=== PATIENT | female | born 1955 | race Caucasian/White ===

== ENCOUNTER → 2016-05-10 | Outpatient (CLI) | payer MEDICARE, BC ==
[2016-05-10 13:50] LABS: ALT 44 U/L (9-52); AST 38 U/L (14-36); Alkaline Phosphatase 55 U/L (38-126); Anion Gap 15 mmol/L; Blood Urea Nitrogen 17 mg/dL (7-17); Calcium 9.6 mg/dL (8.4-10.2); Carbon Dioxide 22 mmol/L (22-30); Chloride 109 mmol/L (98-107); Cholesterol 176 mg/dL (<200); Glucose 108 mg/dL (74-99); HDL Cholesterol 49 mg/dL (40-60); Non-African American GFR(MDRD) >60 (>60 ml/min/1.73 sqM); Potassium 4.2 mmol/L (3.5-5.1); Sodium 146 mmol/L (137-145); Total Bilirubin 0.4 mg/dL (0.2-1.3); Total Protein 7.3 g/dL (6.3-8.2); Triglycerides 151 mg/dL (<150)
[2016-05-10 14:36] LABS: Vitamin B12 422 pg/mL (239-931)
== END | disposition home or self-care (01) ==
LOC: LABMAIN 12:56
PROVIDERS: ATTEND Internal Medicine Endocrinology, Diabetes & Metabolism
DX: E11.65 Type 2 diabetes mellitus with hyperglycemia (principal)
CPT/HCPCS: 36415; 80053; 80061; 82043; 82607

== ENCOUNTER → 2016-05-17 | Outpatient (CLI) | payer MEDICARE, BC ==
--- NOTE | 2016-05-18 09:58 | BD ---
EXAMINATION TYPE: MG DEXA axial skeleton. DATE OF EXAM: 05/17/2016 4:20 PM COMPARISON: NONE CLINICAL HISTORY: Postmenopausal female with disorder of the bone per order. Height: 5 ft 10 in Weight: 263 FRAX RISK QUESTIONS: Alcohol (3 or more units per day): YES Family History (Parent hip fracture): NO Glucocorticoids (More than 3mos): NO (Ex: prednisone, prednisolone, methylprednisolone, dexamethasone, and hydrocortisone). History of Fracture in Adulthood: YES Secondary Osteoporosis: 1. Type 1 Diabetes: NO 2. Hyperthyroidism: NO 3. Menopause before 45: NO 4. Malnutrition: NO 5. Chronic liver disease: NO Rheumatoid Arthritis: NO Current Tobacco Use: NO RISK FACTORS HISTORY OF: Family History of Osteoporosis: YES Drink Alcohol: YES Active: NO Postmenopausal woman: AGE 54 Lost more than 2 inches in height since high school: YES MEDICATIONS: .Additional Medications: SIMVASTATIN, NORVASC, ASPIRIN, CALCIUM, VIT D 3 , DULOXETINE,TRICOR, MELATON IN, MELOXICAM, MIRTAZAPINE, MONTELUKAST TABS, OMEPRAZOLE, TERAZOSIN, TOPIRAMATE, DIABETIC MEDS Additional History: EXAM MEASUREMENTS: Bone mineral densitometry was performed using the [employer] System. Bone mineral density as measured about the Lumbar spine is: ----- L1-L4(G/cm2): 1.401 T Score Values are as follows: ----- L2: 1.6 ----- L3: 1.2 ----- L4: 2.7 ----- L1-L4: 1.8 Bone mineral density about the R hip (g/cm2): 1.141 Bone mineral density about the L hip (g/cm2): 1.104 T Score values are as follows: -----R Neck: 0.7 -----L Neck: 0.5 -----R Intertrochanter: 0.4 -----L Intertrochanter: 0.5 BASELINE IMPRESSION: Normal (Values between +1 and -1 indicate normal bone mass) [facility] HIPS AND SPINE NOTE: T-SCORE=SD OF THE YOUNG ADULT MEAN.
== END | disposition home or self-care (01) ==
LOC: RADBDWWP 15:47
PROVIDERS: ATTEND Physical Medicine & Rehabilitation
DX: M85.9 Disorder of bone density and structure, unspecified (principal); E11.65 Type 2 diabetes mellitus with hyperglycemia
CPT/HCPCS: 77080; 84443

== ENCOUNTER 2016-12-26 20:03 | Inpatient (IN) | payer MEDICARE, BC ==
[2016-12-26] MEDS ORDERED: RX INFO: IV CONTRAST WAS GIVEN 1 EACH MISC MISCELLANE PRN (20:48)
[2016-12-26] MEDS ORDERED: FAMOTIDINE 20 MG/2 ML VIAL IV STA (20:48)
[2016-12-26] MEDS ORDERED: SODIUM CHLORIDE 0.9% 1,000 ML IV STA (20:48)
[2016-12-26] MEDS ORDERED: ONDANSETRON 4 MG/2 ML VIAL IVP STA (20:48)
[2016-12-26] MEDS ORDERED: HYDROmorphone 1 MG/ML 1 ML SYRINGE IVP STA (20:48)
[2016-12-26 21:20] LABS: Basophils # (A) 0.1 k/uL (0-0.2); Basophils % (A) 1 %; CH 28.3; CHCM 32.1; Eosinophils # (A) 0.1 k/uL (0-0.7); Eosinophils % (A) 1 %; HCT 41.3 % (34.0-46.0); HGB 13.1 gm/dL (11.4-16.0); Luc # (Auto) 0.16; Luc % (Auto) 1; Lymphocytes # (A) 2.3 k/uL (1.0-4.8); Lymphocytes % (A) 17 %; MCH 28.1 pg (25.0-35.0); MCHC 31.8 g/dL (31.0-37.0); MCV 88.4 fL (80.0-100.0); Mean Platelet Volume 8.8; Monocytes # (A) 0.5 k/uL (0-1.0); Monocytes % (A) 4 %; Neutrophils # (A) 10.3 k/uL (1.3-7.7); Neutrophils % (A) 77 %; RBC 4.67 m/uL (3.80-5.40); RDW 14.5 % (11.5-15.5); WBC 13.5 k/uL (3.8-10.6); WBC (Perox) 13.57
[2016-12-26] MEDS ORDERED: methylPREDNISolone SOD SUCCI 125 MG/2 ML VIAL IV STA (21:23)
[2016-12-26] MEDS ORDERED: diphenhydrAMINE 50 MG/ML 1 ML VIAL IVP STA (21:23)
[2016-12-26 21:30] LABS: ALT 58 U/L (9-52); AST 46 U/L (14-36); Alkaline Phosphatase 64 U/L (38-126); Anion Gap 17 mmol/L; Blood Urea Nitrogen 19 mg/dL (7-17); Calcium 10.2 mg/dL (8.4-10.2); Carbon Dioxide 22 mmol/L (22-30); Chloride 105 mmol/L (98-107); Glucose 160 mg/dL (74-99); Non-African American GFR(MDRD) >60 (>60 ml/min/1.73 sqM); Sodium 144 mmol/L (137-145); Total Bilirubin 0.5 mg/dL (0.2-1.3); Total Protein 7.7 g/dL (6.3-8.2)
[2016-12-26 21:55] LABS: Potassium 4.2 mmol/L (3.5-5.1)
[2016-12-26 21:57] LABS: Amylase 1373 U/L (30-110)
--- NOTE | 2016-12-26 22:11 | ED ---
General Adult HPI - General Chief complaint: Abdominal Pain Stated complaint: stomach and back pain Time Seen by Provider: 12/26/16 20:41 Source: patient, RN notes reviewed Mode of arrival: ambulatory Limitations: no limitations - History of Present Illness Initial comments: 61-year-old female presents to the emergency department with a chief complaint of abdominal pain that started all of a sudden today that radiates to the back. Patient states in the center of her abdomen. Patient states that she's never had a feeling this before. Patient denies any abdominal surgeries in the past. Patient states she was concerned due to her pain and she states that it is very moderate. So she thought that she should be evaluated.Patient denies any recent fever, chills, shortness of breath, chest pain, numbness or tingling, dysuria or hematuria, constipation or diarrhea, headaches or visual changes, or any other current symptoms. - Related Data Home Medications Medication Instructions Recorded Confirmed ALPRAZolam [Xanax] 0.25 mg PO DAILY 12/26/16 12/26/16 Aspirin 81 mg PO DAILY 12/26/16 12/26/16 Calcium Carbonate/Vitamin D3 2 cap PO DAILY 12/26/16 12/26/16 [Calcium 600-Vit D3 500 Softgel] Cyclobenzaprine [Flexeril] 10 mg PO DAILY 12/26/16 12/26/16 DULoxetine HCL [Cymbalta] 60 mg PO HS 12/26/16 12/26/16 Fenofibrate Nanocrystallized 145 mg PO DAILY 12/26/16 12/26/16 [Tricor] Meloxicam 15 mg PO DAILY 12/26/16 12/26/16 Montelukast [Singulair] 10 mg PO DAILY 12/26/16 12/26/16 Omeprazole 20 mg PO BID 12/26/16 12/26/16 Simvastatin [Zocor] 40 mg PO DAILY 12/26/16 12/26/16 Terazosin HCl 10 mg PO DAILY 12/26/16 12/26/16 Topiramate [Topamax] 25 mg PO DAILY 12/26/16 12/26/16 Zolpidem [Ambien] 10 mg PO HS 12/26/16 12/26/16 amLODIPine [Norvasc] 2.5 mg PO DAILY 12/26/16 12/26/16 metFORMIN HCL 1,000 mg PO BID 12/26/16 12/26/16 tiZANidine [Zanaflex] 4 mg PO HS 12/26/16 12/26/16 Allergies Allergy/AdvReac Type Severity Reaction Status Date / Time iothalamate meglumine Allergy Rash/Hives Verified 12/26/16 20:47 [From David] Review of Systems ROS Statement: Those systems with pertinent positive or pertinent negative responses have been documented in the HPI. ROS Other: All systems not noted in ROS Statement are negative. Past Medical History Past Medical History: Diabetes Mellitus, GERD/Reflux, Hyperlipidemia, Hypertension, Seizure Disorder, Sleep Apnea/CPAP/BIPAP Additional Past Medical History / Comment(s): depression, migraines History of Any Multi-Drug Resistant Organisms: None Reported Past Surgical History: Bariatric Surgery, Breast Surgery, Orthopedic Surgery, Tonsillectomy Past Psychological History: Depression Smoking Status: Never smoker Past Alcohol Use History: None Reported Past Drug Use History: None Reported General Exam - General Exam Comments Initial Comments: General: The patient is awake and alert, in no distress, and does not appear acutely ill. Eye: Pupils are equal, round and reactive to light, extra-ocular movements are intact; there is normal conjunctiva bilaterally. No signs of icterus. Ears, nose, mouth and throat: There are moist mucous membranes and no oral lesions. Neck: The neck is supple, there is no tenderness. Cardiovascular: There is a regular rate and rhythm. No murmur, rub or gallop is appreciated. Respiratory: Lungs are clear to auscultation, respirations are non-labored, breath sounds are equal. No wheezes, stridor, rales, or rhonchi. Gastrointestinal: Soft, non-distended, right side of the abdomen tenderness abdomen without masses or organomegaly noted. There is no rebound or guarding present. No CVA tenderness. Bowel sounds are unremarkable. Back: There is no tenderness to palpation in the midline. There is no obvious deformity. No rashes noted. Musculoskeletal: Normal ROM, no tenderness, There is no pedal edema. There is no calf tenderness or swelling. Sensation intact. Pulses equal bilaterally 2+. Neurological: CN II-XII intact, There are no obvious motor or sensory deficits. Coordination appears grossly intact. Speech is normal. Skin: Skin is warm and dry and no rashes or lesions are noted. Psychiatric: Cooperative, appropriate mood & affect, normal judgment. Limitations: no limitations Course Vital Signs 12/26/16 12/26/16 12/26/16 20:08 21:34 22:48 Temperature 98.2 F 98.6 F Pulse Rate 107 H 100 100 Respiratory 20 20 16 Rate Blood Pressure 131/77 161/79 153/76 O2 Sat by Pulse 96 95 94 L Oximetry Medical Decision Making - Medical Decision Making 61-year-old female presents emergency Department chief complaint of nausea vomiting and abdominal pain radiates to the back. This time CAT scan lab work has been reviewed. Patient appeared acute pink otitis. They're concerned that could be related to gallstone pancreatitis. We'll continue patient states he medication and nausea medication. We will admit and consult general surgery. Patient is in agreement with this plan. - Lab Data Result diagrams: 12/26/16 21:03 12/26/16 21:03 Lab Results 12/26/16 12/26/16 12/26/16 Range/Units 21:03 21:03 21:03 WBC 13.5 H (3.8-10.6) k/uL RBC 4.67 (3.80-5.40) m/uL Hgb 13.1 (11.4-16.0) gm/dL Hct 41.3 (34.0-46.0) % MCV 88.4 (80.0-100.0) fL MCH 28.1 (25.0-35.0) pg MCHC 31.8 (31.0-37.0) g/dL RDW 14.5 (11.5-15.5) % Plt Count 263 (150-450) k/uL Neutrophils % 77 % Lymphocytes % 17 % Monocytes % 4 % Eosinophils % 1 % Basophils % 1 % Neutrophils # 10.3 H (1.3-7.7) k/uL Lymphocytes # 2.3 (1.0-4.8) k/uL Monocytes # 0.5 (0-1.0) k/uL Eosinophils # 0.1 (0-0.7) k/uL Basophils # 0.1 (0-0.2) k/uL Sodium 144 (137-145) mmol/L Potassium 4.2 (3.5-5.1) mmol/L Chloride 105 (98-107) mmol/L Carbon Dioxide 22 (22-30) mmol/L Anion Gap 17 mmol/L BUN 19 H (7-17) mg/dL Creatinine 0.80 (0.52-1.04) mg/dL Est GFR (MDRD) Af Amer >60 (>60 ml/min/1.73 sqM) Est GFR (MDRD) Non-Af >60 (>60 ml/min/1.73 sqM) Glucose 160 H (74-99) mg/dL Plasma Lactic Acid Richard 0.9 (0.7-2.0) mmol/L Calcium 10.2 (8.4-10.2) mg/dL Total Bilirubin 0.5 (0.2-1.3) mg/dL AST 46 H (14-36) U/L ALT 58 H (9-52) U/L Alkaline Phosphatase 64 (38-126) U/L Total Protein 7.7 (6.3-8.2) g/dL Albumin 4.7 (3.5-5.0) g/dL Amylase 1373 H* (30-110) U/L Lipase >63218 H (23-300) U/L - Radiology Data Radiology results: report reviewed, image reviewed Disposition Clinical Impression: Acute pancreatitis, Cholelithiasis Disposition: ADMITTED IP TO THIS [facility] Condition: Stable Referrals: Amy Card MD [Primary Care Provider] - 1-2 days Time of Disposition: 23:29 Decision Date: 12/26/16 Decision Time: 23:29
--- NOTE | 2016-12-26 23:01 | CT ---
EXAM: CT Abdomen and Pelvis With Intravenous Contrast CLINICAL HISTORY: Reason: Pain TECHNIQUE: Axial computed tomography images of the abdomen and pelvis with intravenous contrast. DLP is 1986.90 mGy-cm. This CT exam was performed using one or more of the following dose reduction techniques: automated exposure control, adjustment of the mA and/or kV according to patient size, and/or use of iterative reconstruction technique. COMPARISON: No relevant prior studies available. FINDINGS: Lower thorax: No acute findings. ABDOMEN: Liver: Unremarkable. No mass. Gallbladder and bile ducts: Cholelithiasis. No signs of active inflammation. No ductal dilation. Pancreas: Pancreas demonstrates mild inflammatory change around the head and neck. No ductal dilation. Spleen: Unremarkable. No splenomegaly. Adrenals: Unremarkable. No mass. Kidneys and ureters: Unremarkable. No solid mass. No hydronephrosis. Stomach and bowel: Mild thickening of the duodenum surrounding mesenteric inflammation. Descending and sigmoid diverticulosis without active inflammation. No obstruction. Appendix: No findings to suggest acute appendicitis. PELVIS: Bladder: Unremarkable. No mass. Reproductive: Unremarkable as visualized. ABDOMEN and PELVIS: Intraperitoneal space: Unremarkable. No free air. No significant fluid collection. Bones/joints: No acute fracture. No dislocation. Soft tissues: Unremarkable. Vasculature: Unremarkable. No abdominal aortic aneurysm. Lymph nodes: Unremarkable. No enlarged lymph nodes. IMPRESSION: 1. Findings indicative of mild uncomplicated pancreatitis. 2. Mild duodenal inflammation may be secondary to #1. 3. Sigmoid diverticulosis. 4. Cholelithiasis.
[2016-12-26] MEDS ORDERED: HYDROmorphone 1 MG/ML 1 ML SYRINGE IV PRN (23:29)
[2016-12-26] MEDS ORDERED: NALOXONE 0.4 MG/ML 1 ML VIAL IV PRN (23:29)
[2016-12-27] MEDS ORDERED: TERAZOSIN 5 MG CAP PO ONE (01:17)
[2016-12-27] MEDS ORDERED: ALPRAZolam 0.25 MG TAB PO STA (01:18)
[2016-12-27] MEDS ORDERED: DULoxetine HCL 60 MG CAPSULE.DR PO ONE (01:19)
[2016-12-27] MEDS ORDERED: ZOLPIDEM 10 MG TAB PO ONE (01:20)
[2016-12-27] MEDS: SODIUM CHLORIDE 0.9% 1,000 ML IV SCH ×3 (04:17→21:41)
[2016-12-27] MEDS: ACETAMINOPHEN TAB 325 MG TAB PO PRN ×2 (06:51→12:21)
[2016-12-27 08:02] LABS: Glucose,Whole Blood 234 mg/dL (75-99)
[2016-12-27 08:18] LABS: Basophils % (A) 0 %; CH 28.2; CHCM 31.4; Eosinophils % (A) 0 %; HCT 40.6 % (34.0-46.0); HDW 2.58; HGB 12.3 gm/dL (11.4-16.0); Hypochromasia Slight; Luc # (Auto) 0.03; Luc % (Auto) 0; Lymphocytes # (A) 0.7 k/uL (1.0-4.8); Lymphocytes % (A) 6 %; MCH 27.3 pg (25.0-35.0); MCHC 30.3 g/dL (31.0-37.0); MCV 90.2 fL (80.0-100.0); Mean Platelet Volume 8.6; Monocytes # (A) 0.2 k/uL (0-1.0); Monocytes % (A) 2 %; Neutrophils # (A) 10.8 k/uL (1.3-7.7); Neutrophils % (A) 92 %; WBC 11.8 k/uL (3.8-10.6); WBC (Perox) 12.06
[2016-12-27 08:28] LABS: ALT 46 U/L (9-52); AST 33 U/L (14-36); Alkaline Phosphatase 58 U/L (38-126); Anion Gap 13 mmol/L; Blood Urea Nitrogen 18 mg/dL (7-17); Calcium 9.3 mg/dL (8.4-10.2); Carbon Dioxide 22 mmol/L (22-30); Chloride 108 mmol/L (98-107); Glucose 243 mg/dL (74-99); Non-African American GFR(MDRD) >60 (>60 ml/min/1.73 sqM); Potassium 4.4 mmol/L (3.5-5.1); Sodium 143 mmol/L (137-145); Total Bilirubin 0.5 mg/dL (0.2-1.3); Total Protein 7.2 g/dL (6.3-8.2)
[2016-12-27] MEDS: INSULIN LISPRO (humaLOG) 300 UNIT/3 ML VIAL SQ SCH ×4 (08:34→21:48)
[2016-12-27 08:36] LABS: Amylase 813 U/L (30-110)
[2016-12-27] MEDS: amLODIPine 2.5 MG TAB PO SCH (08:39)
[2016-12-27] MEDS: MONTELUKAST 10 MG TAB PO SCH (08:39)
[2016-12-27] MEDS: ATORVASTATIN 20 MG TAB PO SCH (08:39)
[2016-12-27] MEDS: TOPIRAMATE 25 MG TAB PO SCH (08:39)
[2016-12-27] MEDS: FENOFIBRATE 160 MG TAB PO SCH (08:39)
[2016-12-27] MEDS: CYCLOBENZAPRINE 10 MG TAB PO SCH (08:39)
[2016-12-27] MEDS: ASPIRIN 81 MG CHEW PO SCH (08:39)
[2016-12-27] MEDS: MELOXICAM 7.5 MG TAB PO SCH (08:39)
[2016-12-27] MEDS: CALCIUM CARB-VIT D 500MG-200UN 1 EACH TAB PO SCH (08:39)
[2016-12-27] MEDS: ONDANSETRON 4 MG/2 ML VIAL IVP PRN ×2 (08:44→17:51)
[2016-12-27] MEDS ORDERED: NON-FORMULARY DRUG (Metformin Hcl [Metformin Hcl] 1,000 MG) PO SCH (09:00)
[2016-12-27] MEDS ORDERED: TERAZOSIN 5 MG CAP PO SCH (09:00)
[2016-12-27] MEDS ORDERED: ALPRAZolam 0.25 MG TAB PO SCH (09:00)
[2016-12-27] MEDS ORDERED: PANTOPRAZOLE 40 MG TABLET PO SCH (09:00)
[2016-12-27 10:32] LABS: Appearance,Urine Clear (Clear); Bilirubin,Urine Negative (Negative); Glucose,Urine (UA) 3+ (Negative); Ketones,Urine Trace (Negative); Leukocyte Esterase,Urine Negative (Negative); Mucus,Urine Rare /hpf; Nitrite,Urine Negative (Negative); PH, Urine 6.5 (5.0-8.0); Particle Count 2224; Protein,Urine 3+ (Negative); RBC,Urine 2 /hpf (0-5); Specific Gravity,Urine 1.044 (1.001-1.035); Squamous Epithelial Cell,Urine 1 /hpf (0-4); UA Billing (MACRO vs. MICRO) MICRO; Urobilinogen,Urine <2.0 mg/dL (<2.0); WBC,Urine 5 /hpf (0-5)
--- NOTE | 2016-12-27 12:08 | P.GSCN ---
<Carol Rogel - Last Filed: 12/27/16 16:23> History of Present Illness Consult date: 12/27/16 Reason for Consult: Pancreatitis History of present illness: A 61-year-old female presented on the day of admission to the emergency room with a sudden onset of pain between shoulder blades radiating to the back to the center of the abdomen. Patient stated it felt sharp never had experienced pain like this in the past. Patient stated she felt nauseated with the episode with no emesis. Patient stated that she did not feel short of breath did not have an episode of diaphoresis. states that she's been urinating with no difficulty. Patient states no change in bowel habits. Patient states she did have a colonoscopy done [address] virk. Patient stated there were no acute findings. Patient states she's not certain if she's had an EGD done in the past. Patient denies any reflux symptoms. Patient states there has been no change in her medication. Gives no history of alcohol abuse. Patient states pain medication has not been effective for pain relief creates a sensation of nausea Patient does give a history of 100 pound weight loss within 1 year by diet Patient does state that in April 2016 was experiencing episodes of shortness of breath went to her PCP who referred her to a carpet cleaner in [facility]. Patient stated at that time in April she did undergo heart catheterization there were no acute findings. CAT scan abdomen and pelvis with IV contrast showed gallbladder and bile ducts no signs of active inflammation no ductal dilatation spleen unremarkable pancreas inflammatory changes around the head and the neck findings indicated of mild uncomplicated pancreatitis, sigmoid diverticulosis, mild duodenal inflammation may be secondary to on top acute pancreatitis Past surgical history per patient report tummy tuck years ago, breast reduction years ago, tonsillectomy, nasal polyps Review of Systems Essentially unremarkable except as mentioned in the present illness Past Medical History Past Medical History: Diabetes Mellitus, GERD/Reflux, Hyperlipidemia, Hypertension, Seizure Disorder, Sleep Apnea/CPAP/BIPAP Additional Past Medical History / Comment(s): depression, migraines History of Any Multi-Drug Resistant Organisms: None Reported Past Surgical History: Bariatric Surgery, Breast Surgery, Orthopedic Surgery, Tonsillectomy Past Psychological History: Depression Smoking Status: Never smoker Past Alcohol Use History: None Reported Past Drug Use History: None Reported - Past Family History Mother Additional Family Medical History / Comment(s): bad back and bad heart Father Additional Family Medical History / Comment(s): dementia runs on dads side of family Medications and Allergies Home Medications Medication Instructions Recorded Confirmed Type ALPRAZolam [Xanax] 0.25 mg PO DAILY 12/26/16 12/26/16 History Aspirin 81 mg PO DAILY 12/26/16 12/26/16 History Calcium Carbonate/Vitamin D3 2 cap PO DAILY 12/26/16 12/26/16 History [Calcium 600-Vit D3 500 Softgel] Cyclobenzaprine [Flexeril] 10 mg PO DAILY 12/26/16 12/26/16 History DULoxetine HCL [Cymbalta] 60 mg PO HS 12/26/16 12/26/16 History Fenofibrate Nanocrystallized 145 mg PO DAILY 12/26/16 12/26/16 History [Tricor] Meloxicam 15 mg PO DAILY 12/26/16 12/26/16 History Montelukast [Singulair] 10 mg PO DAILY 12/26/16 12/26/16 History Omeprazole 20 mg PO BID 12/26/16 12/26/16 History Simvastatin [Zocor] 40 mg PO DAILY 12/26/16 12/26/16 History Terazosin HCl 10 mg PO DAILY 12/26/16 12/26/16 History Topiramate [Topamax] 25 mg PO DAILY 12/26/16 12/26/16 History Zolpidem [Ambien] 10 mg PO HS 12/26/16 12/26/16 History amLODIPine [Norvasc] 2.5 mg PO DAILY 12/26/16 12/26/16 History metFORMIN HCL 1,000 mg PO BID 12/26/16 12/26/16 History tiZANidine [Zanaflex] 4 mg PO HS 12/26/16 12/26/16 History Allergies Allergy/AdvReac Type Severity Reaction Status Date / Time iothalamate meglumine Allergy Rash/Hives Verified 12/26/16 20:47 [From David] Surgical - Exam Vital Signs Temp Pulse Resp BP Pulse Ox 98.2 F 107 H 20 131/77 96 12/26/16 20:08 12/26/16 20:08 12/26/16 20:08 12/26/16 20:08 12/26/16 20:08 GENERAL APPEARANCE: Pleasant 61-year-old female patient is alert, oriented, 3 in no acute distress. Reports the pain medication creates a nausea sensation does not effectively controlled the abdominal discomfort VITAL SIGNS: Reviewed HEENT: Head is normocephalic and atraumatic. Pupils are equal and reactive. The nares are patent. Oropharynx is clear without lesions. NECK: Supple without lymphadenopathy. Traches midline. HEART: S1, S2. Regular rate and rhythm. Denies chest pain no murmur LUNGS: No crackles or wheezes are heard. Adequate air entry bilaterally ABDOMEN: Soft, diffuse abdominal discomfort with tenderness nondistended with good bowel sounds. No peritoneal signs. No palpable organomegaly or masses. EXTREMITIES: Normal skin color and turgor. No cyanosis, rash, ulceration, clubbing or edema. Radial pedal pulses are 2/4 bilaterally. NEUROLOGICAL: No focal deficits. Strength and sensation are grossly intact. Results - Labs 12/27/16 07:16 12/27/16 07:16 Abnormal Lab Results - Last 24 Hours (Table) 12/26/16 12/26/16 12/26/16 Range/Units 09:00 21:03 21:03 WBC 13.5 H (3.8-10.6) k/uL MCHC (31.0-37.0) g/dL Neutrophils # 10.3 H (1.3-7.7) k/uL Lymphocytes # (1.0-4.8) k/uL Chloride (98-107) mmol/L BUN 19 H (7-17) mg/dL Glucose 160 H (74-99) mg/dL POC Glucose (mg/dL) (75-99) mg/dL AST 46 H (14-36) U/L ALT 58 H (9-52) U/L Amylase 1373 H* (30-110) U/L Lipase >29755 H (23-300) U/L Ur Specific [place] 1.044 H (1.001-1.035) Urine Protein 3+ H (Negative) Urine Glucose (UA) 3+ H (Negative) Urine Ketones Trace H (Negative) Urine Mucus Rare H (None) /hpf 12/27/16 12/27/16 12/27/16 Range/Units 07:16 07:16 07:57 WBC 11.8 H (3.8-10.6) k/uL MCHC 30.3 L (31.0-37.0) g/dL Neutrophils # 10.8 H (1.3-7.7) k/uL Lymphocytes # 0.7 L (1.0-4.8) k/uL Chloride 108 H (98-107) mmol/L BUN 18 H (7-17) mg/dL Glucose 243 H (74-99) mg/dL POC Glucose (mg/dL) 234 H (75-99) mg/dL AST (14-36) U/L ALT (9-52) U/L Amylase 813 H* (30-110) U/L Lipase 82859 H (23-300) U/L Ur Specific [place] (1.001-1.035) Urine Protein (Negative) Urine Glucose (UA) (Negative) Urine Ketones (Negative) Urine Mucus (None) /hpf Diabetes panel 12/26/16 12/27/16 Range/Units 21:03 07:16 Sodium 144 143 (137-145) mmol/L Potassium 4.2 4.4 (3.5-5.1) mmol/L Chloride 105 108 H (98-107) mmol/L Carbon Dioxide 22 22 (22-30) mmol/L BUN 19 H 18 H (7-17) mg/dL Creatinine 0.80 0.67 (0.52-1.04) mg/dL Glucose 160 H 243 H (74-99) mg/dL Calcium 10.2 9.3 (8.4-10.2) mg/dL AST 46 H 33 (14-36) U/L ALT 58 H 46 (9-52) U/L Alkaline Phosphatase 64 58 (38-126) U/L Total Protein 7.7 7.2 (6.3-8.2) g/dL Albumin 4.7 4.4 (3.5-5.0) g/dL Calcium panel 12/26/16 12/27/16 Range/Units 21:03 07:16 Calcium 10.2 9.3 (8.4-10.2) mg/dL Albumin 4.7 4.4 (3.5-5.0) g/dL Pituitary panel 12/26/16 12/27/16 Range/Units 21:03 07:16 Sodium 144 143 (137-145) mmol/L Potassium 4.2 4.4 (3.5-5.1) mmol/L Chloride 105 108 H (98-107) mmol/L Carbon Dioxide 22 22 (22-30) mmol/L BUN 19 H 18 H (7-17) mg/dL Creatinine 0.80 0.67 (0.52-1.04) mg/dL Glucose 160 H 243 H (74-99) mg/dL Calcium 10.2 9.3 (8.4-10.2) mg/dL Adrenal panel 12/26/16 12/27/16 Range/Units 21:03 07:16 Sodium 144 143 (137-145) mmol/L Potassium 4.2 4.4 (3.5-5.1) mmol/L Chloride 105 108 H (98-107) mmol/L Carbon Dioxide 22 22 (22-30) mmol/L BUN 19 H 18 H (7-17) mg/dL Creatinine 0.80 0.67 (0.52-1.04) mg/dL Glucose 160 H 243 H (74-99) mg/dL Calcium 10.2 9.3 (8.4-10.2) mg/dL Total Bilirubin 0.5 0.5 (0.2-1.3) mg/dL AST 46 H 33 (14-36) U/L ALT 58 H 46 (9-52) U/L Alkaline Phosphatase 64 58 (38-126) U/L Total Protein 7.7 7.2 (6.3-8.2) g/dL Albumin 4.7 4.4 (3.5-5.0) g/dL Assessment and Plan Plan: Impression Present on admission diffuse abdominal pain sudden onset with nausea vomiting suspect due to acute gallstone induced pancreatitis with elevated lipase greater than 20,000 CAT scan abdomen and pelvis with IV contrast shows findings indicated of mild uncomplicated pancreatitis CAT scan abdomen pelvis sigmoid diverticulosis CAT scan abdomen and pelvis suggest cholelithiasis with no active signs of inflammation no ductal dilatation Hypertension Dyslipidemia Depressive disorder nonspecified Plan Check a tryglycerin level Pain control IV fluid at 100 hour Repeat labs in the morning lipase amylase DVT and GI prophylaxis No acute surgical abdomen Patient will need an outpatient follow-up with surgical service for a laparoscopic cholecystectomy to be arranged in the outpatient setting Further recommendations pending Thank you for allowing us to participate in the surgical management of your patient further surgical recommendations pending will follow clinical course closely The above impression and plan of care have been discussed and directed by signing physician. Carol Rogel nurse practitioner acting as scribe for signing physician. <Linnea Watts N - Last Filed: 12/29/16 17:40> Surgical - Exam Vital Signs Temp Pulse Resp BP Pulse Ox 98.2 F 107 H 20 131/77 96 12/26/16 20:08 12/26/16 20:08 12/26/16 20:08 12/26/16 20:08 12/26/16 20:08 Results - Labs 12/29/16 11:47 12/27/16 07:16 Abnormal Lab Results - Last 24 Hours (Table) 12/28/16 12/28/16 12/29/16 Range/Units 17:27 20:50 07:14 WBC (3.8-10.6) k/uL RBC (3.80-5.40) m/uL Hgb (11.4-16.0) gm/dL Hct (34.0-46.0) % Neutrophils # (1.3-7.7) k/uL Monocytes # (0-1.0) k/uL POC Glucose (mg/dL) 136 H 132 H 140 H (75-99) mg/dL Amylase (30-110) U/L Lipase (23-300) U/L 12/29/16 12/29/16 12/29/16 Range/Units 11:47 11:47 12:24 WBC 17.8 H (3.8-10.6) k/uL RBC 3.79 L (3.80-5.40) m/uL Hgb 10.8 L (11.4-16.0) gm/dL Hct 33.9 L (34.0-46.0) % Neutrophils # 14.8 H (1.3-7.7) k/uL Monocytes # 1.2 H (0-1.0) k/uL POC Glucose (mg/dL) 149 H (75-99) mg/dL Amylase 140 H (30-110) U/L Lipase 580 H (23-300) U/L Microbiology - Last 24 Hours (Table) 12/26/16 21:03 Blood Culture - Preliminary Blood No Growth after 48 hours 12/27/16 09:00 Urine Culture - Final Urine,Voided Assessment and Plan Plan: Patient seen and evaluated alongside CLIENT SUCCESS DIRECTOR. Patient reports severe epigastric abdominal pain. She is on Mobic which increases risk for severe postoperative bleeding following cholecystectomy. Recommend nothing by mouth with follow up of pancreatic enzymes. Possible outpatient cholecystectomy given patient is currently on Mobic and will need 5-7 days off prior to surgical intervention.
[2016-12-27 12:33] LABS: Hepatitis B Surface Ag Index 0.09
[2016-12-27 12:37] LABS: Glucose,Whole Blood 177 mg/dL (75-99)
[2016-12-27 12:39] LABS: Hepatitis B Core IgM Index 0.01
[2016-12-27 12:51] LABS: Hepatitis C Virus IgG Ab Negative (Negative); Hepatitis C Virus IgG Index 0.04
[2016-12-27 13:01] LABS: Hemoglobin A1C 7.1 % (4.2-6.1)
[2016-12-27 13:08] LABS: Cholesterol 181 mg/dL (<200); HDL Cholesterol 56 mg/dL (40-60)
[2016-12-27] MEDS: HYDROmorphone 1 MG/ML 1 ML SYRINGE IV PRN ×3 (14:56→21:53)
--- NOTE | 2016-12-27 15:52 | P.HPIM ---
History of Present Illness H&P Date: 12/27/16 Chief Complaint: Abdominal pain diffuse This is 61-year-old female that he is obese history of hypertension comes in the hospital with sudden onset abdominal pain. Patient was noted to have diffuse abdominal pain initial laboratory values have significantly elevated pancreatic enzymes. Patient underwent a computed tomography scan of abdomen and pelvis was noted to have pancreatic inflammation. Patient was also noted to have cholelithiasis today was triaged to the medical floor. Patient has been receiving IV fluids and nothing by mouth. States that the pain is slightly improved Denies having any headaches blurry vision chest pain difficulty breathing urinary urgency or frequency. Patient states her pain is slightly improved Denies having a previous episode in the past Review of Systems All systems: negative (Noted in HPI) Past Medical History Past Medical History: Diabetes Mellitus, GERD/Reflux, Hyperlipidemia, Hypertension, Seizure Disorder, Sleep Apnea/CPAP/BIPAP Additional Past Medical History / Comment(s): depression, migraines History of Any Multi-Drug Resistant Organisms: None Reported Past Surgical History: Bariatric Surgery, Breast Surgery, Orthopedic Surgery, Tonsillectomy Past Psychological History: Depression Smoking Status: Never smoker Past Alcohol Use History: None Reported Past Drug Use History: None Reported - Past Family History Mother Additional Family Medical History / Comment(s): bad back and bad heart Father Additional Family Medical History / Comment(s): dementia runs on dads side of family Medications and Allergies Home Medications Medication Instructions Recorded Confirmed Type ALPRAZolam [Xanax] 0.25 mg PO DAILY 12/26/16 12/26/16 History Aspirin 81 mg PO DAILY 12/26/16 12/26/16 History Calcium Carbonate/Vitamin D3 2 cap PO DAILY 12/26/16 12/26/16 History [Calcium 600-Vit D3 500 Softgel] Cyclobenzaprine [Flexeril] 10 mg PO DAILY 12/26/16 12/26/16 History DULoxetine HCL [Cymbalta] 60 mg PO HS 12/26/16 12/26/16 History Fenofibrate Nanocrystallized 145 mg PO DAILY 12/26/16 12/26/16 History [Tricor] Meloxicam 15 mg PO DAILY 12/26/16 12/26/16 History Montelukast [Singulair] 10 mg PO DAILY 12/26/16 12/26/16 History Omeprazole 20 mg PO BID 12/26/16 12/26/16 History Simvastatin [Zocor] 40 mg PO DAILY 12/26/16 12/26/16 History Terazosin HCl 10 mg PO DAILY 12/26/16 12/26/16 History Topiramate [Topamax] 25 mg PO DAILY 12/26/16 12/26/16 History Zolpidem [Ambien] 10 mg PO HS 12/26/16 12/26/16 History amLODIPine [Norvasc] 2.5 mg PO DAILY 12/26/16 12/26/16 History metFORMIN HCL 1,000 mg PO BID 12/26/16 12/26/16 History tiZANidine [Zanaflex] 4 mg PO HS 12/26/16 12/26/16 History Allergies Allergy/AdvReac Type Severity Reaction Status Date / Time iothalamate meglumine Allergy Rash/Hives Verified 12/26/16 20:47 [From [facility]] Physical Exam Vitals: Vital Signs Temp Pulse Pulse Resp BP BP Pulse Ox 12/27/16 15:10 94 L 12/27/16 15:00 97.8 F 104 H 16 142/71 74 L 12/27/16 08:00 20 12/27/16 07:00 97.1 F L 110 H 20 148/98 91 L 12/27/16 00:45 99 F 105 H 20 165/99 94 L 12/26/16 22:48 98.6 F 100 16 153/76 94 L 12/26/16 21:34 100 20 161/79 95 12/26/16 20:08 98.2 F 107 H 20 131/77 96 Intake and Output 12/27/16 12/27/16 12/27/16 06:59 14:59 22:59 Intake Total 0 Balance 0 Intake: Oral 0 Other: # Voids 2 Weight 127.686 kg Physical exam Gen. appearance oriented 3 in no distress Neck is supple no JVD Lungs good air entry clear to auscultation no rhonchi or wheezing Heart S1-S2 heard regular rate and rhythm no murmurs appreciated Abdomen diffuse abdominal pain no organomegaly obese abdomen Neurologically cranial nerves II-12 grossly intact no focal motor or sensory deficits noted Skin no abnormalities appreciated Results CBC & Chem 7: 12/27/16 07:16 12/27/16 07:16 Labs: Abnormal Lab Results - Last 24 Hours (Table) 12/26/16 12/26/16 12/26/16 Range/Units 09:00 21:03 21:03 WBC 13.5 H (3.8-10.6) k/uL MCHC (31.0-37.0) g/dL Neutrophils # 10.3 H (1.3-7.7) k/uL Lymphocytes # (1.0-4.8) k/uL Chloride (98-107) mmol/L BUN 19 H (7-17) mg/dL Glucose 160 H (74-99) mg/dL POC Glucose (mg/dL) (75-99) mg/dL Hemoglobin A1c (4.2-6.1) % AST 46 H (14-36) U/L ALT 58 H (9-52) U/L LDL Cholesterol, Calc (0-99) mg/dL Amylase 1373 H* (30-110) U/L Lipase >83987 H (23-300) U/L Ur Specific [place] 1.044 H (1.001-1.035) Urine Protein 3+ H (Negative) Urine Glucose (UA) 3+ H (Negative) Urine Ketones Trace H (Negative) Urine Mucus Rare H (None) /hpf 12/26/16 12/27/16 12/27/16 Range/Units 21:03 07:16 07:16 WBC 11.8 H (3.8-10.6) k/uL MCHC 30.3 L (31.0-37.0) g/dL Neutrophils # 10.8 H (1.3-7.7) k/uL Lymphocytes # 0.7 L (1.0-4.8) k/uL Chloride 108 H (98-107) mmol/L BUN 18 H (7-17) mg/dL Glucose 243 H (74-99) mg/dL POC Glucose (mg/dL) (75-99) mg/dL Hemoglobin A1c 7.1 H (4.2-6.1) % AST (14-36) U/L ALT (9-52) U/L LDL Cholesterol, Calc (0-99) mg/dL Amylase 813 H* (30-110) U/L Lipase 65359 H (23-300) U/L Ur Specific [place] (1.001-1.035) Urine Protein (Negative) Urine Glucose (UA) (Negative) Urine Ketones (Negative) Urine Mucus (None) /hpf 12/27/16 12/27/16 12/27/16 Range/Units 07:16 07:57 12:34 WBC (3.8-10.6) k/uL MCHC (31.0-37.0) g/dL Neutrophils # (1.3-7.7) k/uL Lymphocytes # (1.0-4.8) k/uL Chloride (98-107) mmol/L BUN (7-17) mg/dL Glucose (74-99) mg/dL POC Glucose (mg/dL) 234 H 177 H (75-99) mg/dL Hemoglobin A1c (4.2-6.1) % AST (14-36) U/L ALT (9-52) U/L LDL Cholesterol, Calc 105 H (0-99) mg/dL Amylase (30-110) U/L Lipase (23-300) U/L Ur Specific [place] (1.001-1.035) Urine Protein (Negative) Urine Glucose (UA) (Negative) Urine Ketones (Negative) Urine Mucus (None) /hpf Microbiology - Last 24 Hours (Table) 12/27/16 09:00 Urine Culture - Preliminary Urine,Voided Thrombosis Risk Factor Assmnt - Choose All That Apply Any of the Below Risk Factors Present?: Yes Each Factor Represents 1 point: Obesity (BMI >25) Other Risk Factors: Yes Each Risk Factor Represents 2 Points: Age 61-74 years Thrombosis Risk Factor Assessment Total Risk Factor Score: 3 Thrombosis Risk Factor Assessment Level: Moderate Risk Assessment and Plan Plan: #1 gallstone-induced pancreatitis #2 obesity #3 essential hypertension #4 diabetes mellitus #5 chronic back pain #6 clinical sleep apnea #7 peripheral neuropathy #8 anxiety #9 dyslipidemia Plan Continue ongoing care IV fluids strict nothing by mouth pain control Once patient's clinical status improves we'll start the patient on a liquid diet Did speak to the surgeon recommended following up in close proximity for an outpatient cholecystectomy.
[2016-12-27 17:02] LABS: Glucose,Whole Blood 143 mg/dL (75-99)
[2016-12-27 21:16] LABS: Glucose,Whole Blood 134 mg/dL (75-99)
[2016-12-27] MEDS: ALPRAZolam 0.25 MG TAB PO SCH (21:41)
[2016-12-27] MEDS: DULoxetine HCL 60 MG CAPSULE.DR PO SCH (21:41)
[2016-12-27] MEDS: TERAZOSIN 5 MG CAP PO SCH (21:42)
[2016-12-27] MEDS: PANTOPRAZOLE 40 MG TABLET PO SCH (21:42)
[2016-12-27] MEDS: ZOLPIDEM 10 MG TAB PO SCH (21:46)
[2016-12-28] MEDS: SODIUM CHLORIDE 0.9% 1,000 ML IV SCH (05:11)
[2016-12-28] MEDS: HYDROmorphone 1 MG/ML 1 ML SYRINGE IV PRN ×3 (06:09→20:45)
[2016-12-28 07:23] LABS: Glucose,Whole Blood 146 mg/dL (75-99)
[2016-12-28] MEDS: INSULIN LISPRO (humaLOG) 300 UNIT/3 ML VIAL SQ SCH ×4 (08:17→21:14)
[2016-12-28] MEDS: PANTOPRAZOLE 40 MG TABLET PO SCH ×2 (08:19→20:35)
[2016-12-28] MEDS: ALPRAZolam 0.25 MG TAB PO SCH (08:19)
[2016-12-28 08:20] LABS: Bilirubin, Delta 0.6 mg/dL (0.0-0.2); Total Bilirubin 0.9 mg/dL (0.2-1.3); Total Protein 6.2 g/dL (6.3-8.2)
[2016-12-28] MEDS: MELOXICAM 7.5 MG TAB PO SCH (08:20)
[2016-12-28] MEDS: CALCIUM CARB-VIT D 500MG-200UN 1 EACH TAB PO SCH (08:20)
[2016-12-28] MEDS: amLODIPine 2.5 MG TAB PO SCH (08:21)
[2016-12-28] MEDS: FENOFIBRATE 160 MG TAB PO SCH (08:21)
[2016-12-28] MEDS: TOPIRAMATE 25 MG TAB PO SCH (08:21)
[2016-12-28] MEDS: CYCLOBENZAPRINE 10 MG TAB PO SCH (08:21)
[2016-12-28] MEDS: ATORVASTATIN 20 MG TAB PO SCH (08:22)
[2016-12-28] MEDS: ASPIRIN 81 MG CHEW PO SCH (08:22)
[2016-12-28] MEDS: MONTELUKAST 10 MG TAB PO SCH (08:22)
[2016-12-28] MEDS ORDERED: FUROSEMIDE 10 MG/ML 2 ML VIAL IV ONE (09:30)
--- NOTE | 2016-12-28 09:53 | P.PN ---
Progress Note - Text Patient seen and evaluated. Patient still reports severe epigastric pain. She was given diet per medicine. Recommend keep NPO with severity of abdominal pain and pancreatitis. Patient is high risk for rebound and re-admission since diet has been started too early! Please see full report.
[2016-12-28] MEDS ORDERED: MAG HYDROX/AL HYDROX/SIMETH 30 ML, HYOSCYAMINE ELIXIR 10 ML, CIMETIDINE HCL 300 MG, LID... PO STA ×4 (11:12)
[2016-12-28 12:25] LABS: Glucose,Whole Blood 147 mg/dL (75-99)
--- NOTE | 2016-12-28 13:23 | P.PN ---
Subjective This is 61-year-old female that he is obese history of hypertension comes in the hospital with sudden onset abdominal pain. Patient was noted to have diffuse abdominal pain initial laboratory values have significantly elevated pancreatic enzymes. Patient underwent a computed tomography scan of abdomen and pelvis was noted to have pancreatic inflammation. Patient was also noted to have cholelithiasis today was triaged to the medical floor. Patient has been receiving IV fluids and nothing by mouth. States that the pain is slightly improved Denies having any headaches blurry vision chest pain difficulty breathing urinary urgency or frequency. Patient states her pain is slightly improved Denies having a previous episode in the past 12/28/2016 States to have some reflux pain in her upper chest. No fevers headaches blurry vision nausea is reported Patient states of chronic reflux symptoms Did discuss precautions with the patient Physical exam Gen. appearance oriented 3 in no distress Neck is supple no JVD Lungs good air entry clear to auscultation no rhonchi or wheezing Heart S1-S2 heard regular rate and rhythm no murmurs appreciated Abdomen diffuse abdominal pain no organomegaly obese abdomen Neurologically cranial nerves II-12 grossly intact no focal motor or sensory deficits noted Skin no abnormalities appreciated Results Objective - Vital Signs Vital signs: Vital Signs Temp 99.5 F 12/28/16 07:00 Pulse 120 H 12/28/16 07:00 Resp 22 12/28/16 07:00 BP 119/68 12/28/16 07:00 Pulse Ox 92 L 12/28/16 07:10 Intake & Output 12/27/16 12/28/16 12/28/16 18:59 06:59 18:59 Intake Total 0 Balance 0 Intake: Oral 0 Other: # Voids 2 2 - Labs CBC & Chem 7: 12/27/16 07:16 12/27/16 07:16 Labs: Abnormal Lab Results - Last 24 Hours (Table) 12/26/16 12/27/16 12/27/16 Range/Units 21:03 16:59 21:12 POC Glucose (mg/dL) 143 H 134 H (75-99) mg/dL Hemoglobin A1c 7.1 H (4.2-6.1) % Delta Bilirubin (0.0-0.2) mg/dL AST (14-36) U/L Total Protein (6.3-8.2) g/dL 12/28/16 12/28/16 12/28/16 Range/Units 07:02 07:32 12:22 POC Glucose (mg/dL) 146 H 147 H (75-99) mg/dL Hemoglobin A1c (4.2-6.1) % Delta Bilirubin 0.6 H (0.0-0.2) mg/dL AST 41 H (14-36) U/L Total Protein 6.2 L (6.3-8.2) g/dL Microbiology - Last 24 Hours (Table) 12/26/16 21:03 Blood Culture - Preliminary Blood No Growth after 24 hours 12/27/16 09:00 Urine Culture - Preliminary Urine,Voided Assessment and Plan Plan: #1 gallstone-induced pancreatitis #2 obesity #3 essential hypertension #4 diabetes mellitus #5 chronic back pain #6 clinical sleep apnea #7 peripheral neuropathy #8 anxiety #9 dyslipidemia Plan Continue with clear liquid diet. Liver enzymes appear to have improved We'll attempt a GI cocktail for some reflux symptoms Patient is a high risk for readmission however the standard of care as an inpatient cholecystectomy prior to discharge after a gallstone-induced pancreatitis however the surgeon would like to defer it to on outpatient basis however this should at least be done as soon as possible
--- NOTE | 2016-12-28 14:20 | P.PN ---
<Carol Rogel - Last Filed: 12/28/16 14:06> Subjective 61-year-old female being seen. Currently sitting up in bed taking a clear liquid diet. Patient continues to state having epigastric discomfort states the abdominal discomfort feels the same as when she came into the hospital slightly improved. Continues to persist The lipase on the is down to 10, 897 currently is denying any nausea vomiting denies chest pain or shortness of breath when questioning Objective - Vital Signs Vital signs: Vital Signs Temp 99.5 F 12/28/16 07:00 Pulse 120 H 12/28/16 07:00 Resp 22 12/28/16 07:00 BP 119/68 12/28/16 07:00 Pulse Ox 92 L 12/28/16 07:10 Intake & Output 12/27/16 12/28/16 12/28/16 18:59 06:59 18:59 Intake Total 0 Balance 0 Intake: Oral 0 Other: # Voids 2 2 - Exam Physical exam 61-year-old female sitting up in bed taking a clear liquid diet this morning reports having epigastric pain persist reports no nausea no vomiting Heart S1-S2 audible regular Lungs essentially clear with adequate air movement no shortness of breath Abdomen diffuse abdominal tenderness across the abdominal wall radiates to the epigastric area reports of nausea vomiting and tolerating a clear liquid diet Extremities no edema noted - Labs CBC & Chem 7: 12/27/16 07:16 12/27/16 07:16 Labs: Abnormal Lab Results - Last 24 Hours (Table) 12/26/16 12/27/16 12/27/16 Range/Units 21:03 16:59 21:12 POC Glucose (mg/dL) 143 H 134 H (75-99) mg/dL Hemoglobin A1c 7.1 H (4.2-6.1) % Delta Bilirubin (0.0-0.2) mg/dL AST (14-36) U/L Total Protein (6.3-8.2) g/dL 12/28/16 12/28/16 12/28/16 Range/Units 07:02 07:32 12:22 POC Glucose (mg/dL) 146 H 147 H (75-99) mg/dL Hemoglobin A1c (4.2-6.1) % Delta Bilirubin 0.6 H (0.0-0.2) mg/dL AST 41 H (14-36) U/L Total Protein 6.2 L (6.3-8.2) g/dL Microbiology - Last 24 Hours (Table) 12/27/16 09:00 Urine Culture - Final Urine,Voided 12/26/16 21:03 Blood Culture - Preliminary Blood No Growth after 24 hours Assessment and Plan Plan: Impression Present on admission diffuse abdominal pain sudden onset with nausea vomiting suspect due to acute gallstone induced pancreatitis with elevated lipase greater than 20,000 CAT scan abdomen and pelvis with IV contrast shows findings indicated of mild uncomplicated pancreatitis CAT scan abdomen pelvis sigmoid diverticulosis CAT scan abdomen and pelvis suggest cholelithiasis with no active signs of inflammation no ductal dilatation Hypertension Dyslipidemia Depressive disorder nonspecified Plan Pain control IV fluid at 100 hour Repeat labs in the morning lipase amylase DVT and GI prophylaxis Patient will need an outpatient follow-up with surgical service for a laparoscopic cholecystectomy to be arranged in the outpatient setting The above impression and plan of care have been discussed and directed by signing physician. Carol Rogel nurse practitioner acting as scribe for signing physician. <Linnea Watts N - Last Filed: 12/29/16 17:43> Objective - Vital Signs Vital signs: Vital Signs Temp 98.4 F 12/29/16 14:42 Pulse 112 H 12/29/16 16:48 Resp 18 12/29/16 15:15 BP 134/80 12/29/16 14:42 Pulse Ox 92 L 12/29/16 14:42 Intake & Output 12/28/16 12/29/16 12/29/16 18:59 06:59 18:59 Intake Total 540 1000 540 Balance 540 1000 540 Weight 127.686 kg Intake: Intake, IV Titration 1000 Amount Sodium Chloride 0.9% 1, 1000 000 ml @ 100 mls/hr IV . Q10H DEL Rx#:[id number] Oral 540 540 Other: # Voids 2 1 - Exam GENERAL: Well developed and in mild distress. HEENT: No sclera icterus. Extraocular movements grossly intact. Moist buccal mucosa. Head is atraumatic, normocephalic. Hears conversational speech. No nasal drainage. NECK: Supple without lymphadenopathy. No JV distention. CHEST: Non-labored respirations and equal bilateral excursions. CARDIOVASCULAR: Regular rate and rhythm. Palpable 2+ radial pulses. ABDOMEN: Soft, tender along the epigastrium. MUSCULOSKELETAL: No clubbing, cyanosis or edema. NEUROLOGIC: No focal or lateralizing signs. PSYCH: Alert and oriented to person, place and time. SKIN: Good skin turgor. Will perfused. - Labs CBC & Chem 7: 12/29/16 11:47 12/27/16 07:16 Labs: Abnormal Lab Results - Last 24 Hours (Table) 12/28/16 12/29/16 12/29/16 Range/Units 20:50 07:14 11:47 WBC (3.8-10.6) k/uL RBC (3.80-5.40) m/uL Hgb (11.4-16.0) gm/dL Hct (34.0-46.0) % Neutrophils # (1.3-7.7) k/uL Monocytes # (0-1.0) k/uL POC Glucose (mg/dL) 132 H 140 H (75-99) mg/dL Amylase 140 H (30-110) U/L Lipase 580 H (23-300) U/L 12/29/16 12/29/16 12/29/16 Range/Units 11:47 12:24 17:19 WBC 17.8 H (3.8-10.6) k/uL RBC 3.79 L (3.80-5.40) m/uL Hgb 10.8 L (11.4-16.0) gm/dL Hct 33.9 L (34.0-46.0) % Neutrophils # 14.8 H (1.3-7.7) k/uL Monocytes # 1.2 H (0-1.0) k/uL POC Glucose (mg/dL) 149 H 146 H (75-99) mg/dL Amylase (30-110) U/L Lipase (23-300) U/L Microbiology - Last 24 Hours (Table) 12/26/16 21:03 Blood Culture - Preliminary Blood No Growth after 48 hours Assessment and Plan Plan: She has findings of acute pancreatitis with persistent abdominal pain and would strongly recommend discontinuing diet at this time to minimize worsening pancreatitis. Recommend repeat pancreatic enzymes. Patient is also persistently tachycardic and will likely need fluid hydration with potential cardiac assessment. Patient is on meloxicam which significantly increases risk for bleeding. We'll need at least 5-7 days off medication prior to surgical intervention to alleviate risks.
--- NOTE | 2016-12-28 14:36 | XR ---
EXAMINATION TYPE: XR chest 2V DATE OF EXAM: 12/28/2016 COMPARISON: 03/07/2011 HISTORY: Shortness of breath TECHNIQUE: Frontal and lateral views of the chest are obtained. FINDINGS: Scattered senescent parenchymal changes noted. Hyperinflation compatible with COPD. Infiltrate and/or atelectasis right medial base. Correlate clinically and progress studies are recomm ended. Heart size is stable. Mediastinal structures are stable and grossly unremarkable. No evidence for hilar prominence. Degenerative changes dorsal spine. IMPRESSION: 1. Infiltrate and/or atelectasis right medial base. Correlate clinically and progress studies are rec ommended.
[2016-12-28] MEDS ORDERED: IPRATROPIUM-ALBUTEROL 3 ML NEB INHALATION PRN (16:19)
[2016-12-28 17:29] LABS: Glucose,Whole Blood 136 mg/dL (75-99)
[2016-12-28] MEDS: IPRATROPIUM-ALBUTEROL 3 ML NEB INHALATION SCH (20:07)
[2016-12-28] MEDS: DULoxetine HCL 60 MG CAPSULE.DR PO SCH (20:34)
[2016-12-28] MEDS: TERAZOSIN 5 MG CAP PO SCH (20:36)
[2016-12-28 20:51] LABS: Glucose,Whole Blood 132 mg/dL (75-99)
[2016-12-28] MEDS: ZOLPIDEM 10 MG TAB PO SCH (21:14)
[2016-12-29] MEDS ORDERED: LORazepam 2 MG/ML SYRINGE IV PRN (01:45)
[2016-12-29 07:21] LABS: Glucose,Whole Blood 140 mg/dL (75-99)
[2016-12-29] MEDS: IPRATROPIUM-ALBUTEROL 3 ML NEB INHALATION SCH ×4 (07:54→20:27)
[2016-12-29] MEDS: ASPIRIN 81 MG CHEW PO SCH (08:19)
[2016-12-29] MEDS: ALPRAZolam 0.25 MG TAB PO SCH (08:19)
[2016-12-29] MEDS: PANTOPRAZOLE 40 MG TABLET PO SCH ×2 (08:19→21:16)
[2016-12-29] MEDS: amLODIPine 2.5 MG TAB PO SCH (08:20)
[2016-12-29] MEDS: MONTELUKAST 10 MG TAB PO SCH (08:20)
[2016-12-29] MEDS: ATORVASTATIN 20 MG TAB PO SCH (08:20)
[2016-12-29] MEDS: MELOXICAM 7.5 MG TAB PO SCH (08:20)
[2016-12-29] MEDS: CALCIUM CARB-VIT D 500MG-200UN 1 EACH TAB PO SCH (08:20)
[2016-12-29] MEDS: FENOFIBRATE 160 MG TAB PO SCH (08:21)
[2016-12-29] MEDS: CYCLOBENZAPRINE 10 MG TAB PO SCH (08:21)
[2016-12-29] MEDS: TOPIRAMATE 25 MG TAB PO SCH (08:21)
[2016-12-29] MEDS: INSULIN LISPRO (humaLOG) 300 UNIT/3 ML VIAL SQ SCH ×4 (08:22→22:59)
[2016-12-29] MEDS ORDERED: FUROSEMIDE 10 MG/ML 4 ML VIAL IV SCH (09:00)
--- NOTE | 2016-12-29 09:15 | XR ---
EXAMINATION TYPE: XR chest 1V DATE OF EXAM: 12/29/2016 COMPARISON: Prior chest x-ray 12/28/2016 HISTORY: Fluid overload TECHNIQUE: Single frontal view of the chest is obtained. FINDINGS: There is no pleural effusion, or pneumothorax seen. Improved aeration is suspected at the right lung base. The cardiac silhouette size is stable, suspect the heart is enlarged, lung volumes are low. The patient is rotated. The osseous structures are intact. IMPRESSION: Rotated expiratory exam. Cardiomegaly is stable. Improved aeration.
[2016-12-29 12:27] LABS: Glucose,Whole Blood 149 mg/dL (75-99)
[2016-12-29 13:08] LABS: Amylase 140 U/L (30-110)
[2016-12-29 13:22] LABS: Basophils # (A) 0.1 k/uL (0-0.2); Basophils % (A) 0 %; CH 28.2; CHCM 31.7; Eosinophils # (A) 0.1 k/uL (0-0.7); Eosinophils % (A) 0 %; HCT 33.9 % (34.0-46.0); HDW 2.57; HGB 10.8 gm/dL (11.4-16.0); Luc % (Auto) 2; Lymphocytes # (A) 1.4 k/uL (1.0-4.8); Lymphocytes % (A) 8 %; MCH 28.5 pg (25.0-35.0); MCHC 31.8 g/dL (31.0-37.0); MCV 89.4 fL (80.0-100.0); Mean Platelet Volume 9.3; Monocytes # (A) 1.2 k/uL (0-1.0); Monocytes % (A) 7 %; Neutrophils # (A) 14.8 k/uL (1.3-7.7); Neutrophils % (A) 83 %; RBC 3.79 m/uL (3.80-5.40); RDW 14.6 % (11.5-15.5); WBC 17.8 k/uL (3.8-10.6); WBC (Perox) 19.41
--- NOTE | 2016-12-29 13:46 | P.PN ---
<Carol Rogel M - Last Filed: 12/29/16 13:35> Subjective 61-year-old female being seen this morning on rounds. Patient is notably more confused restless and agitated this morning patient reportedly had received IV dilaudid last night. Did note low-grade temp this morning 99.1 max to 100.1 at 7 AM this morning the white count is up to 17.8 this morning the lipase is down to 580 urine and blood no growth todate Objective - Vital Signs Vital signs: Vital Signs Temp 99.4 F 12/29/16 09:38 Pulse 100 12/29/16 11:47 Resp 20 12/29/16 09:38 BP 123/69 12/29/16 07:00 Pulse Ox 93 L 12/29/16 09:38 Intake & Output 12/28/16 12/29/16 12/29/16 18:59 06:59 18:59 Intake Total 540 1000 240 Balance 540 1000 240 Weight 127.686 kg Intake: Intake, IV Titration 1000 Amount Sodium Chloride 0.9% 1, 1000 000 ml @ 100 mls/hr IV . Q10H DEL Rx#:[id number] Oral 540 240 Other: # Voids 2 1 - Exam Physical exam 61-year-old female currently resting in bed oriented to person place questionable event restless agitated Lungs essentially clear with adequate air movement sats on 4 L are documented 93 % no cough noted heart S1-S2 audible and regular Abdomen soft not distended slight tenderness across the abdominal wall no nausea no vomiting Extremities no edema noted - Labs CBC & Chem 7: 12/29/16 11:47 12/27/16 07:16 Labs: Abnormal Lab Results - Last 24 Hours (Table) 12/28/16 12/28/16 12/29/16 Range/Units 17:27 20:50 07:14 WBC (3.8-10.6) k/uL RBC (3.80-5.40) m/uL Hgb (11.4-16.0) gm/dL Hct (34.0-46.0) % Neutrophils # (1.3-7.7) k/uL Monocytes # (0-1.0) k/uL POC Glucose (mg/dL) 136 H 132 H 140 H (75-99) mg/dL Amylase (30-110) U/L Lipase (23-300) U/L 12/29/16 12/29/16 12/29/16 Range/Units 11:47 11:47 12:24 WBC 17.8 H (3.8-10.6) k/uL RBC 3.79 L (3.80-5.40) m/uL Hgb 10.8 L (11.4-16.0) gm/dL Hct 33.9 L (34.0-46.0) % Neutrophils # 14.8 H (1.3-7.7) k/uL Monocytes # 1.2 H (0-1.0) k/uL POC Glucose (mg/dL) 149 H (75-99) mg/dL Amylase 140 H (30-110) U/L Lipase 580 H (23-300) U/L Microbiology - Last 24 Hours (Table) 12/26/16 21:03 Blood Culture - Preliminary Blood No Growth after 48 hours 12/27/16 09:00 Urine Culture - Final Urine,Voided Assessment and Plan Plan: Impression Present on admission diffuse abdominal pain sudden onset with nausea vomiting suspect due to acute gallstone induced pancreatitis with elevated lipase greater than 20,000 CAT scan abdomen and pelvis with IV contrast shows findings indicated of mild uncomplicated pancreatitis CAT scan abdomen pelvis sigmoid diverticulosis CAT scan abdomen and pelvis suggest cholelithiasis with no active signs of inflammation no ductal dilatation Hypertension Dyslipidemia Depressive disorder nonspecified Episode of febrile with leukocytosis unclear etiology Plan Pain control IV fluid at 100 hour Repeat labs in the morning lipase amylase DVT and GI prophylaxis Patient will need an outpatient follow-up with surgical service for a laparoscopic cholecystectomy to be arranged in the outpatient setting Recommend being off of mobi for at least 5 days before surgical procedure The above impression and plan of care have been discussed and directed by signing physician. Carol Rogel nurse practitioner acting as scribe for signing physician. <Linnea Watts N - Last Filed: 12/29/16 17:46> Objective - Vital Signs Vital signs: Vital Signs Temp 98.4 F 12/29/16 14:42 Pulse 112 H 12/29/16 16:48 Resp 18 12/29/16 15:15 BP 134/80 12/29/16 14:42 Pulse Ox 92 L 12/29/16 14:42 Intake & Output 12/28/16 12/29/16 12/29/16 18:59 06:59 18:59 Intake Total 540 1000 540 Balance 540 1000 540 Weight 127.686 kg Intake: Intake, IV Titration 1000 Amount Sodium Chloride 0.9% 1, 1000 000 ml @ 100 mls/hr IV . Q10H DEL Rx#:[id number] Oral 540 540 Other: # Voids 2 1 - Labs CBC & Chem 7: 12/29/16 11:47 12/27/16 07:16 Labs: Abnormal Lab Results - Last 24 Hours (Table) 12/28/16 12/29/16 12/29/16 Range/Units 20:50 07:14 11:47 WBC (3.8-10.6) k/uL RBC (3.80-5.40) m/uL Hgb (11.4-16.0) gm/dL Hct (34.0-46.0) % Neutrophils # (1.3-7.7) k/uL Monocytes # (0-1.0) k/uL POC Glucose (mg/dL) 132 H 140 H (75-99) mg/dL Amylase 140 H (30-110) U/L Lipase 580 H (23-300) U/L 12/29/16 12/29/16 12/29/16 Range/Units 11:47 12:24 17:19 WBC 17.8 H (3.8-10.6) k/uL RBC 3.79 L (3.80-5.40) m/uL Hgb 10.8 L (11.4-16.0) gm/dL Hct 33.9 L (34.0-46.0) % Neutrophils # 14.8 H (1.3-7.7) k/uL Monocytes # 1.2 H (0-1.0) k/uL POC Glucose (mg/dL) 149 H 146 H (75-99) mg/dL Amylase (30-110) U/L Lipase (23-300) U/L Microbiology - Last 24 Hours (Table) 12/26/16 21:03 Blood Culture - Preliminary Blood No Growth after 48 hours Assessment and Plan Plan: Patient seen and evaluated with [facility]. Patient is more confused. Lipase and pancreatic enzymes improving. White count however worsen. Tachycardia persists. Recommend IV fluid hydration. She will need to be off Mobic for at least 5 days. As the patient is clinically unstable for discharge, may proceed with inpatient cholecystectomy once tachycardia and medical issues including delirium is addressed. As I will be out of town, Dr. Kaba will resume surgical care.
--- NOTE | 2016-12-29 14:33 | P.PN ---
Subjective This is 61-year-old female that he is obese history of hypertension comes in the hospital with sudden onset abdominal pain. Patient was noted to have diffuse abdominal pain initial laboratory values have significantly elevated pancreatic enzymes. Patient underwent a computed tomography scan of abdomen and pelvis was noted to have pancreatic inflammation. Patient was also noted to have cholelithiasis today was triaged to the medical floor. Patient has been receiving IV fluids and nothing by mouth. States that the pain is slightly improved Denies having any headaches blurry vision chest pain difficulty breathing urinary urgency or frequency. Patient states her pain is slightly improved Denies having a previous episode in the past 12/28/2016 States to have some reflux pain in her upper chest. No fevers headaches blurry vision nausea is reported Patient states of chronic reflux symptoms Did discuss precautions with the patient 12/29/16 drowsy apparently received ambien overnight , with cross coverage No fevers, chills, chest pain, timi, abdominal pain pt is tolerating oral intake Physical exam Gen. appearance oriented 3 in no distress Neck is supple no JVD Lungs good air entry clear to auscultation no rhonchi or wheezing Heart S1-S2 heard regular rate and rhythm no murmurs appreciated Abdomen diffuse abdominal pain no organomegaly obese abdomen Neurologically cranial nerves II-12 grossly intact no focal motor or sensory deficits noted Skin no abnormalities appreciated Results Objective - Vital Signs Vital signs: Vital Signs Temp 99.4 F 12/29/16 09:38 Pulse 100 12/29/16 11:47 Resp 20 12/29/16 09:38 BP 123/69 12/29/16 07:00 Pulse Ox 93 L 12/29/16 09:38 Intake & Output 12/28/16 12/29/16 12/29/16 18:59 06:59 18:59 Intake Total 540 1000 540 Balance 540 1000 540 Weight 127.686 kg Intake: Intake, IV Titration 1000 Amount Sodium Chloride 0.9% 1, 1000 000 ml @ 100 mls/hr IV . Q10H [facility] Rx#:[id number] Oral 540 540 Other: # Voids 2 1 - Labs CBC & Chem 7: 12/29/16 11:47 12/27/16 07:16 Labs: Abnormal Lab Results - Last 24 Hours (Table) 12/28/16 12/28/16 12/29/16 Range/Units 17:27 20:50 07:14 WBC (3.8-10.6) k/uL RBC (3.80-5.40) m/uL Hgb (11.4-16.0) gm/dL Hct (34.0-46.0) % Neutrophils # (1.3-7.7) k/uL Monocytes # (0-1.0) k/uL POC Glucose (mg/dL) 136 H 132 H 140 H (75-99) mg/dL Amylase (30-110) U/L Lipase (23-300) U/L 12/29/16 12/29/16 12/29/16 Range/Units 11:47 11:47 12:24 WBC 17.8 H (3.8-10.6) k/uL RBC 3.79 L (3.80-5.40) m/uL Hgb 10.8 L (11.4-16.0) gm/dL Hct 33.9 L (34.0-46.0) % Neutrophils # 14.8 H (1.3-7.7) k/uL Monocytes # 1.2 H (0-1.0) k/uL POC Glucose (mg/dL) 149 H (75-99) mg/dL Amylase 140 H (30-110) U/L Lipase 580 H (23-300) U/L Microbiology - Last 24 Hours (Table) 12/26/16 21:03 Blood Culture - Preliminary Blood No Growth after 48 hours 12/27/16 09:00 Urine Culture - Final Urine,Voided Assessment and Plan Plan: #1 gallstone-induced pancreatitis #2 obesity #3 essential hypertension #4 diabetes mellitus #5 chronic back pain #6 clinical sleep apnea #7 peripheral neuropathy #8 anxiety #9 dyslipidemia acute toxic encephalopathy Plan continue monitering encourage ambulation likely dc home in the next 24 hrs, unless surgery would like to perform an inpatient cholecystectomy reflux symptoms improved continue with liquid diet dc ambien, decrease zanaflex
[2016-12-29] MEDS ORDERED: ONDANSETRON 4 MG TAB PO PRN (16:29)
[2016-12-29 17:32] LABS: Glucose,Whole Blood 146 mg/dL (75-99)
[2016-12-29] MEDS: SODIUM CHLORIDE 0.9% 1,000 ML IV SCH ×3 (18:07→18:51)
[2016-12-29] MEDS: AMPICILLIN-SULBACTAM 3 GM in SODIUM CHLORIDE 0.9% 100 ML IVPB SCH (18:17)
[2016-12-29] MEDS: DULoxetine HCL 60 MG CAPSULE.DR PO SCH (21:16)
[2016-12-29 21:19] LABS: Glucose,Whole Blood 142 mg/dL (75-99)
[2016-12-29] MEDS: TERAZOSIN 5 MG CAP PO SCH (22:57)
[2016-12-30] MEDS: AMPICILLIN-SULBACTAM 3 GM in SODIUM CHLORIDE 0.9% 100 ML IVPB SCH ×3 (00:36→09:01)
[2016-12-30] MEDS: SODIUM CHLORIDE 0.9% 1,000 ML IV SCH ×3 (06:10→15:00)
[2016-12-30 07:14] LABS: Glucose,Whole Blood 113 mg/dL (75-99)
[2016-12-30] MEDS: INSULIN LISPRO (humaLOG) 300 UNIT/3 ML VIAL SQ SCH ×4 (07:30→20:55)
[2016-12-30] MEDS: IPRATROPIUM-ALBUTEROL 3 ML NEB INHALATION SCH ×4 (07:35→20:01)
[2016-12-30 07:57] LABS: Basophils % (A) 0 %; CH 28.2; CHCM 31.8; Eosinophils # (A) 0.2 k/uL (0-0.7); Eosinophils % (A) 1 %; HCT 32.9 % (34.0-46.0); HDW 2.62; HGB 10.3 gm/dL (11.4-16.0); Luc # (Auto) 0.38; Luc % (Auto) 2; Lymphocytes # (A) 1.4 k/uL (1.0-4.8); Lymphocytes % (A) 9 %; MCH 27.8 pg (25.0-35.0); MCHC 31.2 g/dL (31.0-37.0); MCV 89.1 fL (80.0-100.0); Mean Platelet Volume 8.4; Monocytes # (A) 0.9 k/uL (0-1.0); Monocytes % (A) 5 %; Neutrophils # (A) 13.4 k/uL (1.3-7.7); Neutrophils % (A) 83 %; RDW 14.6 % (11.5-15.5); WBC 16.3 k/uL (3.8-10.6); WBC (Perox) 16.25
[2016-12-30 08:04] LABS: ALT 59 U/L (9-52); AST 48 U/L (14-36); Alkaline Phosphatase 95 U/L (38-126); Amylase 64 U/L (30-110); Anion Gap 12 mmol/L; Blood Urea Nitrogen 11 mg/dL (7-17); Calcium 8.5 mg/dL (8.4-10.2); Carbon Dioxide 22 mmol/L (22-30); Chloride 108 mmol/L (98-107); Glucose 114 mg/dL (74-99); Non-African American GFR(MDRD) >60 (>60 ml/min/1.73 sqM); Potassium 3.4 mmol/L (3.5-5.1); Sodium 142 mmol/L (137-145); Total Bilirubin 1.5 mg/dL (0.2-1.3); Total Protein 6.3 g/dL (6.3-8.2)
[2016-12-30] MEDS: ACETAMINOPHEN TAB 325 MG TAB PO PRN ×2 (09:02→17:25)
[2016-12-30] MEDS: amLODIPine 2.5 MG TAB PO SCH (09:04)
[2016-12-30] MEDS: ASPIRIN 81 MG CHEW PO SCH (09:04)
[2016-12-30] MEDS: PANTOPRAZOLE 40 MG TABLET PO SCH ×2 (09:04→20:50)
[2016-12-30] MEDS: ALPRAZolam 0.25 MG TAB PO SCH (09:04)
[2016-12-30] MEDS: FENOFIBRATE 160 MG TAB PO SCH (09:05)
[2016-12-30] MEDS: TOPIRAMATE 25 MG TAB PO SCH (09:05)
[2016-12-30] MEDS: CYCLOBENZAPRINE 10 MG TAB PO SCH (09:05)
[2016-12-30] MEDS: ATORVASTATIN 20 MG TAB PO SCH (09:06)
[2016-12-30] MEDS: CALCIUM CARB-VIT D 500MG-200UN 1 EACH TAB PO SCH (09:06)
[2016-12-30] MEDS: MONTELUKAST 10 MG TAB PO SCH (09:06)
[2016-12-30] MEDS: ONDANSETRON 4 MG/2 ML VIAL IVP PRN (09:13)
[2016-12-30] MEDS ORDERED: POTASSIUM CHLORIDE ER 20 MEQ TAB.ER PO STA (10:23)
[2016-12-30 11:45] VITALS: BMI 39.2
[2016-12-30 12:40] LABS: Glucose,Whole Blood 125 mg/dL (75-99)
[2016-12-30] MEDS ORDERED: QUEtiapine 25 MG TAB PO STA (12:58)
[2016-12-30] MEDS: DILTIAZEM ORAL 30 MG TAB PO SCH ×3 (13:46→23:02)
--- NOTE | 2016-12-30 14:10 | P.PN ---
Subjective 61-year-old female being seen this morning remains confused and less agitated arousable to verbal stimuli patient indicates continues to have abdominal pain states it's slightly improved but continues to persist the white count this morning is 16.3 electrolytes within normal limits except potassium 3.4. The total bilirubin up to 1.5 afebrile Patient's initial presentation was to the emergency room to be evaluated for diffuse abdominal pain sudden onset with nausea vomiting. Suspect it was due to gallstone induced pancreatitis with elevated lipase greater than 20,000. Additionally the patient stated that she had no significant past medical history and did have a heart catheterization done in April 2016 as part of a workup for what patient stated was for episodes of shortness of breath her PCP made the referral. Patient stated the heart catheterization there were no acute findings was no intervention. Patient stated that there were no episodes of chest pain and was told that she never had a heart attack. Subsequently the patient was admitted to the services of the attending with a surgical eval requested for suspected acute gallstone induced pancreatitis needing laparoscopic cholecystectomy when medically stable Objective - Vital Signs Vital signs: Vital Signs Temp 98.3 F 12/30/16 07:00 Pulse 104 H 12/30/16 07:00 Resp 22 12/30/16 07:00 BP 152/94 12/30/16 07:00 Pulse Ox 96 12/30/16 07:05 Intake & Output 12/29/16 12/30/16 12/30/16 18:59 06:59 18:59 Intake Total 540 640 Balance 540 640 Weight 127.686 kg Intake: Intake, IV Titration 100 Amount Ampicillin-Sulbactam 3 gm 100 In Sodium Chloride 0.9% 100 ml @ 100 mls/hr IVPB Q6HR [facility] Rx#:[id number] Oral 540 540 Other: # Voids 1 1 - Exam Physical exam 61-year-old female currently resting in bed oriented person and place cooperative more oriented less restless Lungs essentially clear with adequate air movement sats on 4 L are documented 93 % no cough noted on room air sats 89% heart S1-S2 audible and regular Abdomen soft not distended slight tenderness across the abdominal wall no nausea no vomiting continues to report having abdominal discomfort Extremities no edema noted - Labs CBC & Chem 7: 12/30/16 07:40 12/30/16 07:40 Labs: Abnormal Lab Results - Last 24 Hours (Table) 12/29/16 12/29/16 12/30/16 Range/Units 17:19 21:09 06:54 WBC (3.8-10.6) k/uL RBC (3.80-5.40) m/uL Hgb (11.4-16.0) gm/dL Hct (34.0-46.0) % Neutrophils # (1.3-7.7) k/uL Potassium (3.5-5.1) mmol/L Chloride (98-107) mmol/L Glucose (74-99) mg/dL POC Glucose (mg/dL) 146 H 142 H 113 H (75-99) mg/dL Total Bilirubin (0.2-1.3) mg/dL AST (14-36) U/L ALT (9-52) U/L Albumin (3.5-5.0) g/dL 12/30/16 12/30/16 12/30/16 Range/Units 07:40 07:40 12:31 WBC 16.3 H (3.8-10.6) k/uL RBC 3.70 L (3.80-5.40) m/uL Hgb 10.3 L (11.4-16.0) gm/dL Hct 32.9 L (34.0-46.0) % Neutrophils # 13.4 H (1.3-7.7) k/uL Potassium 3.4 L (3.5-5.1) mmol/L Chloride 108 H (98-107) mmol/L Glucose 114 H (74-99) mg/dL POC Glucose (mg/dL) 125 H (75-99) mg/dL Total Bilirubin 1.5 H (0.2-1.3) mg/dL AST 48 H (14-36) U/L ALT 59 H (9-52) U/L Albumin 3.4 L (3.5-5.0) g/dL Microbiology - Last 24 Hours (Table) 12/26/16 21:03 Blood Culture - Preliminary Blood No Growth after 72 hours Assessment and Plan Plan: Impression Present on admission diffuse abdominal pain sudden onset with nausea vomiting suspect due to acute gallstone induced pancreatitis with elevated lipase greater than 20,000 CAT scan abdomen and pelvis with IV contrast shows findings indicated of mild uncomplicated pancreatitis CAT scan abdomen pelvis sigmoid diverticulosis CAT scan abdomen and pelvis suggest cholelithiasis with no active signs of inflammation no ductal dilatation Hypertension Dyslipidemia Depressive disorder nonspecified Episode of febrile with leukocytosis unclear etiology History of heart catheterization April 2016 per patient report no acute findings Plan Will obtained a heart catheterization report from office Consult cardiology for cardiac clearance Stop aspirin and mobic Will need a laparoscopic cholecystectomy when medically stable needing to be off mobic and aspirin for 5 days before procedure Pain control IV fluid at 100 hour Repeat labs in the morning lipase amylase DVT and GI prophylaxis Recommend being off of mobic for at least 5 days before surgical procedure Follow up on pending ultrasound of abdomen The above impression and plan of care have been discussed and directed by signing physician. Carol Rogel nurse practitioner acting as scribe for signing physician.
--- NOTE | 2016-12-30 14:14 | P.PN ---
Subjective This is 61-year-old female that he is obese history of hypertension comes in the hospital with sudden onset abdominal pain. Patient was noted to have diffuse abdominal pain initial laboratory values have significantly elevated pancreatic enzymes. Patient underwent a computed tomography scan of abdomen and pelvis was noted to have pancreatic inflammation. Patient was also noted to have cholelithiasis today was triaged to the medical floor. Patient has been receiving IV fluids and nothing by mouth. States that the pain is slightly improved Denies having any headaches blurry vision chest pain difficulty breathing urinary urgency or frequency. Patient states her pain is slightly improved Denies having a previous episode in the past 12/28/2016 States to have some reflux pain in her upper chest. No fevers headaches blurry vision nausea is reported Patient states of chronic reflux symptoms Did discuss precautions with the patient 12/29/16 drowsy apparently received ambien overnight , with cross coverage No fevers, chills, chest pain, timi, abdominal pain pt is tolerating oral intake 12/30/16 more awake however does make odd comments was able to ambulate without much difficulty Physical exam Gen. appearance oriented 3 in no distress Neck is supple no JVD Lungs good air entry clear to auscultation no rhonchi or wheezing Heart S1-S2 heard regular rate and rhythm no murmurs appreciated Abdomen no abdominal pain no organomegaly obese abdomen Neurologically cranial nerves II-12 grossly intact no focal motor or sensory deficits noted Skin no abnormalities appreciated Results Objective - Vital Signs Vital signs: Vital Signs Temp 98.3 F 12/30/16 07:00 Pulse 104 H 12/30/16 07:00 Resp 22 12/30/16 07:00 BP 152/94 12/30/16 07:00 Pulse Ox 96 12/30/16 07:05 Intake & Output 12/29/16 12/30/16 12/30/16 18:59 06:59 18:59 Intake Total 540 640 Balance 540 640 Weight 127.686 kg Intake: Intake, IV Titration 100 Amount Ampicillin-Sulbactam 3 gm 100 In Sodium Chloride 0.9% 100 ml @ 100 mls/hr IVPB Q6HR [facility] Rx#:[id number] Oral 540 540 Other: # Voids 1 1 - Labs CBC & Chem 7: 12/30/16 07:40 12/30/16 07:40 Labs: Abnormal Lab Results - Last 24 Hours (Table) 08/12/29/16 12/30/16 Range/Units 17:19 21:09 06:54 WBC (3.8-10.6) k/uL RBC (3.80-5.40) m/uL Hgb (11.4-16.0) gm/dL Hct (34.0-46.0) % Neutrophils # (1.3-7.7) k/uL Potassium (3.5-5.1) mmol/L Chloride (98-107) mmol/L Glucose (74-99) mg/dL POC Glucose (mg/dL) 146 H 142 H 113 H (75-99) mg/dL Total Bilirubin (0.2-1.3) mg/dL AST (14-36) U/L ALT (9-52) U/L Albumin (3.5-5.0) g/dL 12/30/16 12/30/16 12/30/16 Range/Units 07:40 07:40 12:31 WBC 16.3 H (3.8-10.6) k/uL RBC 3.70 L (3.80-5.40) m/uL Hgb 10.3 L (11.4-16.0) gm/dL Hct 32.9 L (34.0-46.0) % Neutrophils # 13.4 H (1.3-7.7) k/uL Potassium 3.4 L (3.5-5.1) mmol/L Chloride 108 H (98-107) mmol/L Glucose 114 H (74-99) mg/dL POC Glucose (mg/dL) 125 H (75-99) mg/dL Total Bilirubin 1.5 H (0.2-1.3) mg/dL AST 48 H (14-36) U/L ALT 59 H (9-52) U/L Albumin 3.4 L (3.5-5.0) g/dL Microbiology - Last 24 Hours (Table) 12/26/16 21:03 Blood Culture - Preliminary Blood No Growth after 72 hours Assessment and Plan Plan: #1 gallstone-induced pancreatitis #2 obesity #3 essential hypertension #4 diabetes mellitus #5 chronic back pain #6 obstructive sleep apnea, non compliant #7 peripheral neuropathy #8 anxiety #9 dyslipidemia acute toxic encephalopathy Plan surgery on tuesday lives alone, safety at home needs to assessed discontinue more meds, including zanaflex, xanax cardiology eval for clearance discussed case with surgery advance diet
--- NOTE | 2016-12-30 14:40 | US ---
EXAMINATION TYPE: US abdomen limited DATE OF EXAM: 12/30/2016 COMPARISON: NONE CLINICAL HISTORY: RUQ pain . Cholelithiasis seen on recent CT EXAM MEASUREMENTS: Liver Length: 22.2 cm Gallbladder Wall: 0.3 cm CBD: 0.5 cm Right Kidney: 13.4 x 6.8 x 6.6 cm Pancreas: obscured by overlying bowel gas Liver: enlarged at 22.2cm, somewhat heterogeneous echogenicity Gallbladder: cholelithiasis with largest stone measuring 2.1cm Evidence for sonographic Antunez's sign: yes CBD: visualized portions wnl, limited by overlying bowel gas Right Kidney: wnl IMPRESSION: 1. Hepatomegaly. 2. Hepatic steatosis. 3 uncomplicated cholelithiasis
[2016-12-30 16:57] LABS: Glucose,Whole Blood 120 mg/dL (75-99)
[2016-12-30] MEDS: AMOXIC-POT CLAV 875-125MG 1 EACH TAB PO SCH (20:50)
[2016-12-30] MEDS: TERAZOSIN 5 MG CAP PO SCH (20:50)
[2016-12-30] MEDS: DULoxetine HCL 60 MG CAPSULE.DR PO SCH (20:50)
[2016-12-30 21:00] LABS: Glucose,Whole Blood 121 mg/dL (75-99)
[2016-12-30] MEDS ORDERED: QUEtiapine 25 MG TAB PO SCH (21:00)
[2016-12-31] MEDS: ACETAMINOPHEN TAB 325 MG TAB PO PRN ×3 (04:39→17:29)
[2016-12-31] MEDS: SODIUM CHLORIDE 0.9% 1,000 ML IV SCH (06:47)
[2016-12-31 07:25] LABS: Glucose,Whole Blood 107 mg/dL (75-99)
[2016-12-31 07:42] VITALS: RESP 20
[2016-12-31] MEDS: IPRATROPIUM-ALBUTEROL 3 ML NEB INHALATION SCH ×4 (08:48→15:37)
[2016-12-31 08:49] LABS: Basophils # (A) 0.1 k/uL (0-0.2); Basophils % (A) 0 %; CH 28.2; CHCM 31.3; Eosinophils # (A) 0.1 k/uL (0-0.7); Eosinophils % (A) 1 %; HCT 33.6 % (34.0-46.0); HDW 2.76; HGB 10.5 gm/dL (11.4-16.0); Hypochromasia Slight; Luc # (Auto) 0.44; Luc % (Auto) 3; Lymphocytes # (A) 1.3 k/uL (1.0-4.8); Lymphocytes % (A) 8 %; MCH 28.1 pg (25.0-35.0); MCHC 31.1 g/dL (31.0-37.0); MCV 90.4 fL (80.0-100.0); Mean Platelet Volume 8.3; Monocytes # (A) 1.2 k/uL (0-1.0); Monocytes % (A) 7 %; Neutrophils # (A) 12.6 k/uL (1.3-7.7); Neutrophils % (A) 81 %; RBC 3.71 m/uL (3.80-5.40); RDW 14.9 % (11.5-15.5); WBC 15.7 k/uL (3.8-10.6); WBC (Perox) 15.05
[2016-12-31 09:07] LABS: ALT 54 U/L (9-52); AST 45 U/L (14-36); Alkaline Phosphatase 129 U/L (38-126); Anion Gap 15 mmol/L; Blood Urea Nitrogen 8 mg/dL (7-17); Calcium 8.8 mg/dL (8.4-10.2); Carbon Dioxide 19 mmol/L (22-30); Chloride 108 mmol/L (98-107); Glucose 101 mg/dL (74-99); Non-African American GFR(MDRD) >60 (>60 ml/min/1.73 sqM); Potassium 3.6 mmol/L (3.5-5.1); Sodium 142 mmol/L (137-145); Total Bilirubin 1.4 mg/dL (0.2-1.3); Total Protein 6.3 g/dL (6.3-8.2)
[2016-12-31] MEDS: INSULIN LISPRO (humaLOG) 300 UNIT/3 ML VIAL SQ SCH ×3 (09:57→17:26)
[2016-12-31] MEDS: DILTIAZEM ORAL 30 MG TAB PO SCH ×3 (10:00→17:27)
[2016-12-31] MEDS: AMOXIC-POT CLAV 875-125MG 1 EACH TAB PO SCH (10:00)
[2016-12-31] MEDS: amLODIPine 2.5 MG TAB PO SCH (10:00)
[2016-12-31] MEDS: FENOFIBRATE 160 MG TAB PO SCH (10:00)
[2016-12-31] MEDS: PANTOPRAZOLE 40 MG TABLET PO SCH (10:00)
[2016-12-31] MEDS: MONTELUKAST 10 MG TAB PO SCH (10:00)
[2016-12-31] MEDS: TOPIRAMATE 25 MG TAB PO SCH (10:00)
[2016-12-31] MEDS: CALCIUM CARB-VIT D 500MG-200UN 1 EACH TAB PO SCH (10:00)
[2016-12-31] MEDS: ATORVASTATIN 20 MG TAB PO SCH (10:01)
--- NOTE | 2016-12-31 10:44 | P.PN ---
Subjective 61-year-old female being seen with Dr. Kaba this morning on rounds. Patient continues to report having bilateral lower abdominal pain. Patient states that she has not had a bowel movement since she has been admitted to the hospital. Patient states the pain as a same as it was when she came into the hospital. currently is denying any nausea no vomiting and is tolerating the clear liquids Patient is more awake and alert this morning remained afebrile Pain meds are being adjusted by medicine service did obtain the report from a heart catheterization done in April 2016 at [facility] report indicates that there was no acute obstructive coronary artery disease. The heart catheterization was done according to the report for an abnormal stress test. Patient continues to deny any chest discomfort when questioning. Objective - Vital Signs Vital signs: Vital Signs Temp 97.5 F L 12/31/16 07:00 Pulse 101 H 12/31/16 07:00 Resp 20 12/31/16 07:00 BP 155/84 12/31/16 07:00 Pulse Ox 92 L 12/31/16 07:00 Intake & Output 12/30/16 12/31/16 12/31/16 18:59 06:59 18:59 Intake Total 1180 Balance 1180 Weight 127.686 kg Intake: Intake, IV Titration 100 Amount Ampicillin-Sulbactam 3 gm 100 In Sodium Chloride 0.9% 100 ml @ 100 mls/hr IVPB Q6HR [facility] Rx#:[id number] Oral 1080 Other: # Voids 2 1 - Exam Physical exam 60-year-old female resting in bed continues to report having bilateral diffuse abdominal pain points to the bilateral lower abdomen as to the reference point is more awake more alert oriented 3 Lungs essentially clear adequate air movement on room air Heart S1-S2 audible and regular denying chest pain when questioning Abdomen obese soft not distended slight tenderness bilaterally bowel tones present states no bowel movement since admission states urinating no difficulty no reports of nausea vomiting Extremities no edema noted - Labs CBC & Chem 7: 12/31/16 07:57 12/31/16 07:57 Labs: Abnormal Lab Results - Last 24 Hours (Table) 12/30/16 12/30/16 12/30/16 Range/Units 12:31 16:40 20:55 WBC (3.8-10.6) k/uL RBC (3.80-5.40) m/uL Hgb (11.4-16.0) gm/dL Hct (34.0-46.0) % Neutrophils # (1.3-7.7) k/uL Monocytes # (0-1.0) k/uL Chloride (98-107) mmol/L Carbon Dioxide (22-30) mmol/L Glucose (74-99) mg/dL POC Glucose (mg/dL) 125 H 120 H 121 H (75-99) mg/dL Total Bilirubin (0.2-1.3) mg/dL AST (14-36) U/L ALT (9-52) U/L Alkaline Phosphatase (38-126) U/L Albumin (3.5-5.0) g/dL 12/31/16 12/31/16 12/31/16 Range/Units 07:14 07:57 07:57 WBC 15.7 H (3.8-10.6) k/uL RBC 3.71 L (3.80-5.40) m/uL Hgb 10.5 L (11.4-16.0) gm/dL Hct 33.6 L (34.0-46.0) % Neutrophils # 12.6 H (1.3-7.7) k/uL Monocytes # 1.2 H (0-1.0) k/uL Chloride 108 H (98-107) mmol/L Carbon Dioxide 19 L (22-30) mmol/L Glucose 101 H (74-99) mg/dL POC Glucose (mg/dL) 107 H (75-99) mg/dL Total Bilirubin 1.4 H (0.2-1.3) mg/dL AST 45 H (14-36) U/L ALT 54 H (9-52) U/L Alkaline Phosphatase 129 H (38-126) U/L Albumin 3.4 L (3.5-5.0) g/dL Microbiology - Last 24 Hours (Table) 12/26/16 21:03 Blood Culture - Preliminary Blood No Growth after 96 hours Assessment and Plan Plan: Impression Present on admission diffuse abdominal pain sudden onset with nausea vomiting suspect due to acute gallstone induced pancreatitis with elevated lipase greater than 20,000 CAT scan abdomen and pelvis with IV contrast shows findings indicated of mild uncomplicated pancreatitis CAT scan abdomen pelvis sigmoid diverticulosis CAT scan abdomen and pelvis suggest cholelithiasis with no active signs of inflammation no ductal dilatation Hypertension essential Dyslipidemia Depressive disorder nonspecified Episode of febrile with leukocytosis unclear etiology History of heart catheterization April 2016 per obtained report indicates no acute findings Episode of acute encephalopathy suspect medication induced improving Plan Continue recommendations per medical service defer to Consult cardiology for cardiac clearance Stop aspirin and mobic Will need a laparoscopic cholecystectomy when medically stable needing to be off mobic and aspirin for 5 days before procedure Pain control IV fluid at 75cc hour Continue Augmentin as ordered per medicine service DVT and GI prophylaxis Recommend being off of mobic for at least 5 days before surgical procedure The above impression and plan of care have been discussed and directed by signing physician. Carol Rogel nurse practitioner acting as scribe for signing physician.
[2016-12-31 12:33] LABS: Glucose,Whole Blood 142 mg/dL (75-99)
[2016-12-31 15:04] VITALS: BP 167/84; PULSE 94; TEMP 97.8
[2016-12-31 17:21] LABS: Glucose,Whole Blood 108 mg/dL (75-99)
--- NOTE | 2016-12-31 17:50 | P.DS ---
Providers Date of admission: 12/26/16 23:32 Expected date of discharge: 12/31/16 Attending physician: MD Dr. Maynor Alatorre Consults: 12/26/16 23:30 Consult Physician Routine Consulting Provider: Bita Owusu Consult Reason/Comments: acute pancreatitis Do you want consulting provider notified?: Yes 12/30/16 13:48 Consult Physician Urgent Consulting Provider: Amanda Little Consult Reason/Comments: cardiac eval poss lap chol Do you want consulting provider notified?: Yes Primary care physician: Amy Card [facility] Course: Final Diagnoses: #1 gallstone-induced pancreatitis #2 obesity #3 essential hypertension #4 diabetes mellitus #5 chronic back pain #6 obstructive sleep apnea, non compliant #7 peripheral neuropathy #8 anxiety #9 dyslipidemia # 10 acute toxic encephalopathy, improved Hospital course:This is 61-year-old female that he is obese history of hypertension comes in the hospital with sudden onset abdominal pain. Patient was noted to have diffuse abdominal pain initial laboratory values have significantly elevated pancreatic enzymes. computed tomography scan of abdomen and pelvis was noted to have pancreatic inflammation with cholelithiasis. Hydrated with IV fluids, evaluated by surgery. Significant clinical improvement. Mobic and aspirin placed on hold. Patient to follow-up with surgery on Tuesday to schedule laparoscopic cholecystectomy. Patient has been cleared by surgery for discharge. Patient is being discharged home in a stable condition with guarded prognosis. The impression and plan of care has been dictated as directed as a scribe. : I performed a H&P examination of this patient and discussed the same with the dictator. I agree with the dictator's note. Any additional findings/opinions/ etc. will be noted. Patient Condition at Discharge: Stable Plan - Discharge Summary New Discharge Prescriptions: New Diltiazem Oral [Cardizem*] 30 mg PO QID #120 tab Amoxic-Pot Clav 875-125Mg [Augmentin 875-125] 1 tab PO Q12HR #14 tablet Continue Topiramate [Topamax] 25 mg PO DAILY Terazosin HCl 10 mg PO DAILY metFORMIN HCL 1,000 mg PO BID Simvastatin [Zocor] 40 mg PO DAILY Omeprazole 20 mg PO BID Montelukast [Singulair] 10 mg PO DAILY Fenofibrate Nanocrystallized [Tricor] 145 mg PO DAILY DULoxetine HCL [Cymbalta] 60 mg PO HS Cyclobenzaprine [Flexeril] 10 mg PO DAILY amLODIPine [Norvasc] 2.5 mg PO DAILY Calcium Carbonate/Vitamin D3 [Calcium 600-Vit D3 500 Softgel] 2 cap PO DAILY Discontinued Zolpidem [Ambien] 10 mg PO HS Meloxicam 15 mg PO DAILY Aspirin 81 mg PO DAILY Discharge Medication List Calcium Carbonate/Vitamin D3 [Calcium 600-Vit D3 500 Softgel] 2 cap PO DAILY [History] Cyclobenzaprine [Flexeril] 10 mg PO DAILY 12/26/16 [History] DULoxetine HCL [Cymbalta] 60 mg PO HS 12/26/16 [History] Fenofibrate Nanocrystallized [Tricor] 145 mg PO DAILY 12/26/16 [History] Montelukast [Singulair] 10 mg PO DAILY 12/26/16 [History] Omeprazole 20 mg PO BID 12/26/16 [History] Simvastatin [Zocor] 40 mg PO DAILY 12/26/16 [History] Terazosin HCl 10 mg PO DAILY 12/26/16 [History] Topiramate [Topamax] 25 mg PO DAILY 12/26/16 [History] amLODIPine [Norvasc] 2.5 mg PO DAILY 12/26/16 [History] metFORMIN HCL 1,000 mg PO BID 12/26/16 [History] Amoxic-Pot Clav 875-125Mg [Augmentin 875-125] 1 tab PO Q12HR #14 tablet [Rx] Diltiazem Oral [Cardizem*] 30 mg PO QID #120 tab 12/31/16 [Rx] Follow up Appointment(s)/Referral(s): Linnea Watts MD [STAFF PHYSICIAN] - 01/04/17 11:30 am (In [facility] [phone]) Amy Card MD [Primary Care Provider] - 3 Days (Office closed, please call for appointment. ) Ambulatory/Diagnostic Orders: Comprehensive Metabolic Panel [LAB.AMB] Time Frame: 3 Days, Location: Determined By Patient Patient Instructions/Handouts: Pancreatitis (DC) Activity/Diet/Wound Care/Special Instructions: NO Mobic or aspirin. BiPAP at home as previously advised. Diet: Soft bland, low-fat Activity: Limited until follow up
--- NOTE | 2017-01-01 05:55 | P.CRDCN ---
History of Present Illness Consult date: 12/31/16 History of present illness: This 61-year-old female is admitted to the hospital with abdominal pain and evidence of pancreatitis. It was felt that pancreatitis is related to gallstones. Patient's symptoms have improved. Surgery is being planned for next week. We're asked to see the patient for cardiac clearance. This patient apparently had a cardiac catheterization at [facility] about a year ago because of positive stress test. She was not found to have any significant obstructive disease. Apparently there was a 60% lesion in one of the side branches. She was advised maximum medical therapy. Since that time patient has been free of any significant chest pain. Patient did not have any chest pain since admission here. Patient seemed to be clinically stable and it appears raul patient is being discharged home. As patient is clinically stable without angina, without any clinically significant obstructive disease by cardiac catheterization about a year ago, I do not see any absolute contraindication for the surgery. I do want to see a echocardiogram before surgery. Review of Systems As per the chart Past Medical History Past Medical History: Diabetes Mellitus, GERD/Reflux, Hyperlipidemia, Hypertension, Seizure Disorder, Sleep Apnea/CPAP/BIPAP Additional Past Medical History / Comment(s): depression, migraines and mild coronary artery disease History of Any Multi-Drug Resistant Organisms: None Reported Past Surgical History: Bariatric Surgery, Breast Surgery, Orthopedic Surgery, Tonsillectomy Past Psychological History: Depression Smoking Status: Never smoker Past Alcohol Use History: None Reported Past Drug Use History: None Reported - Past Family History Mother Additional Family Medical History / Comment(s): bad back and bad heart Father Additional Family Medical History / Comment(s): dementia runs on dads side of family Medications and Allergies Home Medications Medication Instructions Recorded Confirmed Type Calcium Carbonate/Vitamin D3 2 cap PO DAILY 12/26/16 12/26/16 History [Calcium 600-Vit D3 500 Softgel] Cyclobenzaprine [Flexeril] 10 mg PO DAILY 12/26/16 12/26/16 History DULoxetine HCL [Cymbalta] 60 mg PO HS 12/26/16 12/26/16 History Fenofibrate Nanocrystallized 145 mg PO DAILY 12/26/16 12/26/16 History [Tricor] Montelukast [Singulair] 10 mg PO DAILY 12/26/16 12/26/16 History Omeprazole 20 mg PO BID 12/26/16 12/26/16 History Simvastatin [Zocor] 40 mg PO DAILY 12/26/16 12/26/16 History Terazosin HCl 10 mg PO DAILY 12/26/16 12/26/16 History Topiramate [Topamax] 25 mg PO DAILY 12/26/16 12/26/16 History amLODIPine [Norvasc] 2.5 mg PO DAILY 12/26/16 12/26/16 History metFORMIN HCL 1,000 mg PO BID 12/26/16 12/26/16 History Allergies Allergy/AdvReac Type Severity Reaction Status Date / Time iothalamate meglumine Allergy Rash/Hives Verified 12/26/16 20:47 [From [facility]] Physical Exam Vitals: Vital Signs Temp Pulse Resp BP Pulse Ox 12/31/16 15:04 92 L 12/31/16 15:00 97.8 F 94 20 167/84 91 L 12/31/16 07:00 97.5 F L 101 H 20 155/84 92 L Intake and Output 12/31/16 12/31/16 01/01/17 14:59 22:59 06:59 Intake Total 200 Balance 200 Intake: Oral 200 Other: # Voids 3 # Bowel Movements 0 GENERAL EXAM: Patient is alert and oriented and doesn't appear to be in any acute distress HEENT: Normocephalic. Normal reaction of pupils, equal size, normal range of extraocular motion. No erythema or exudates in the throat. NECK: No masses, no nuchal rigidity. CHEST: No chest wall deformity. LUNGS: Equal air entry with no crackles or wheeze. HEART: S1 and S2 normal with no audible mumurs or gallops. Regular rhythm, femorals equal on both sides.. ABDOMEN: No hepatosplenomegaly, normal bowel sounds, no guarding or rigidity. SKIN: No rashes CENTRAL NERVOUS SYSTEM: No focal deficits. EXTREMITIES: No cyanosis, clubbing or edema. Results 12/31/16 07:57 12/31/16 07:57 Cardiac Enzymes 12/31/16 Range/Units 07:57 AST 45 H (14-36) U/L CBC 12/31/16 Range/Units 07:57 WBC 15.7 H (3.8-10.6) k/uL RBC 3.71 L (3.80-5.40) m/uL Hgb 10.5 L (11.4-16.0) gm/dL Hct 33.6 L (34.0-46.0) % Plt Count 284 (150-450) k/uL Comprehensive Metabolic Panel 12/31/16 Range/Units 07:57 Sodium 142 (137-145) mmol/L Potassium 3.6 (3.5-5.1) mmol/L Chloride 108 H (98-107) mmol/L Carbon Dioxide 19 L (22-30) mmol/L BUN 8 (7-17) mg/dL Creatinine 0.62 (0.52-1.04) mg/dL Glucose 101 H (74-99) mg/dL Calcium 8.8 (8.4-10.2) mg/dL AST 45 H (14-36) U/L ALT 54 H (9-52) U/L Alkaline Phosphatase 129 H (38-126) U/L Total Protein 6.3 (6.3-8.2) g/dL Albumin 3.4 L (3.5-5.0) g/dL Intake and Output 12/31/16 12/31/16 01/01/17 14:59 22:59 06:59 Intake Total 200 Balance 200 Intake: Oral 200 Other: # Voids 3 # Bowel Movements 0 12/31/16 07:57 12/31/16 07:57 Assessment and Plan (1) CAD (coronary artery disease) Status: Acute (2) Acute pancreatitis Status: Acute (3) Cholelithiasis Status: Acute (4) Sleep apnea Status: Acute Plan: Based on the clinical information, I do not seen absolute contraindication for surgery. I would like to see her EKG and also echocardiogram. Thank you again for letting us parts. In the care of this patient.,
== END 2016-12-31 18:03 | disposition home or self-care (01) | DRG 438 ==
LOC: EC 20:03 → 4MS4W 23:32
PROVIDERS: ADMIT Internal Medicine; ATTEND Internal Medicine
DX: K85.90 Acute pancreatitis without necrosis or infection, unspecified (principal); G92 Toxic encephalopathy; G62.9 Polyneuropathy, unspecified; F32.9 Major depressive disorder, single episode, unspecified; E11.9 Type 2 diabetes mellitus without complications; K80.20 Calculus of gallbladder without cholecystitis without obstruction; E66.9 Obesity, unspecified; E78.5 Hyperlipidemia, unspecified; F41.9 Anxiety disorder, unspecified; G47.33 Obstructive sleep apnea (adult) (pediatric); G89.29 Other chronic pain; I10 Essential (primary) hypertension; Z91.19 Patient's noncompliance with other medical treatment and regimen; I25.10 Atherosclerotic heart disease of native coronary artery without angina pectoris; K21.9 Gastro-esophageal reflux disease without esophagitis; K57.30 Diverticulosis of large intestine without perforation or abscess without bleeding; Z79.82 Long term (current) use of aspirin; Z79.899 Other long term (current) drug therapy
CPT/HCPCS: 36415; 71010; 71020; 74177; 76705; 80053; 80061; 80074; 80076; 81001; 82150; 83036; 83605; 83690; 85025; 87040; 87086; 94640; 96361; 96374; 96375; 99285

== ENCOUNTER 2017-01-07 13:09 | Day surgery (SDC) | payer MEDICARE, BC ==
[2017-01-05 13:20] VITALS: BMI 38.3
--- NOTE | 2017-01-07 13:02 | P.GSHP ---
History of Present Illness H&P Date: 01/07/17 CHIEF COMPLAINT: Cholecystitis. HISTORY OF PRESENT ILLNESS: The patient is a 61-year-old female who presents with history of epigastric including right upper quadrant abdominal pain. She underwent diagnostic studies for her gallbladder. Separately her clinical picture was consistent with cholecystitis. Now she presents for surgical intervention. PAST MEDICAL HISTORY: Please see list PAST SURGICAL HISTORY: Please see list MEDICATIONS: Please see list ALLERGIES: Denies. SOCIAL HISTORY: No illicit drug use or recent tobacco use FAMILY HISTORY: Pertinent for gallbladder disease REVIEW OF ORGAN SYSTEMS: CONSTITUTIONAL: No reports of fevers or chills. HEENT: Denies any troubles with the vision or hearing. PHYSICAL EXAM: VITAL SIGNS: Afebrile vital signs stable GENERAL: Well-developed pleasant in no acute distress. HEENT: No scleral icterus. Extraocular movements grossly intact. Moist buccal mucosa. NECK: Supple without lymphadenopathy. CHEST: Unlabored respirations. Equal bilateral excursions. CARDIOVASCULAR: Regular rate regular rhythm rhythm. Distal 2+ pulses. ABDOMEN: Soft, nondistended. Tender along the epigastrium and right upper quadrant. MUSCULOSKELETAL: No clubbing, cyanosis, or edema. NEURO: Cranial nerves II to XII within normal limits. No focal or lateralizing signs. PSYCH: Alert and oriented to person, place and time. ASSESSMENT: 1. Epigastric and right upper quadrant abdominal pain 2. Chronic cholecystitis 3. Symptomatic gallstones. PLAN: 1. Will need a laparoscopic cholecystectomy possible open. Benefits and risks were described. 2. Heparin for DVT prophylaxis 5000 units. 3. Antibiotic prophylaxis. Past Medical History Past Medical History: Asthma, Coronary Artery Disease (CAD), Diabetes Mellitus, GERD/Reflux, Hyperlipidemia, Hypertension, Sleep Apnea/CPAP/BIPAP Additional Past Medical History / Comment(s): gallstones, recent pancreatitis, migraines, mild coronary artery disease, mild asthma, not using cpap, hx anemia, History of Any Multi-Drug Resistant Organisms: None Reported Past Surgical History: Breast Surgery, Heart Catheterization, Orthopedic Surgery , Tonsillectomy Additional Past Surgical History / Comment(s): left breast lumpectomy("precancer "), fatty pocket on left side of back, abdominoplasty, breast reduction, arthroscopy shoulder surgery(?rt), Past Anesthesia/Blood Transfusion Reactions: No Reported Reaction Smoking Status: Never smoker - Past Family History Mother Family Medical History: No Reported History Additional Family Medical History / Comment(s): . Father Additional Family Medical History / Comment(s): dementia runs on dads side of family Medications and Allergies Home Medications Medication Instructions Recorded Confirmed Type Calcium Carbonate/Vitamin D3 1 cap PO DAILY 12/26/16 01/05/17 History [Calcium 600-Vit D3 500 Softgel] Cyclobenzaprine [Flexeril] 10 mg PO DAILY 12/26/16 01/05/17 History DULoxetine HCL [Cymbalta] 60 mg PO HS 12/26/16 01/05/17 History Fenofibrate Nanocrystallized 145 mg PO DAILY 12/26/16 01/05/17 History [Tricor] Montelukast [Singulair] 10 mg PO DAILY 12/26/16 01/05/17 History Omeprazole 20 mg PO DAILY 12/26/16 01/05/17 History Simvastatin [Zocor] 40 mg PO DAILY 12/26/16 01/05/17 History Terazosin HCl 10 mg PO 12/26/16 01/05/17 History Topiramate [Topamax] 25 mg PO DAILY 12/26/16 01/05/17 History amLODIPine [Norvasc] 2.5 mg PO DAILY 12/26/16 01/05/17 History metFORMIN HCL 1,000 mg PO [facility] 12/26/16 01/05/17 History Aspirin [Adult Low Dose Aspirin EC] 81 mg PO DAILY 01/05/17 01/05/17 History Zolpidem [Ambien] 10 mg PO HS 01/05/17 01/05/17 History Allergies Allergy/AdvReac Type Severity Reaction Status Date / Time Iodinated Contrast- Oral and Allergy Rash/Hives Verified 01/05/17 13:04 IV Dye iothalamate meglumine Allergy Rash/Hives Verified 01/05/17 13:04 [From [facility]]
--- NOTE | 2017-01-07 13:03 | P.HPADDEND ---
H&P Addendum H&P Addendum Date: 01/07/17 Robotic-assisted approach advised as for patient's body habitus and degree of difficulty anticipated.
[~2017-01-07 13:09] MED LIST: DEXAMETHASONE SOD PHOSPHATE 10 MG/ML 1 ML VIAL IV ONE; HEPARIN SODIUM,PORCINE 5,000 UNIT/ML 1 ML VIAL SQ ONE; HYDROmorphone 1 MG/ML 1 ML SYRINGE IVP PRN; LACTATED RINGERS 1,000 ML IV SCH; MIDAZOLAM 2 MG/2 ML VIAL IV PRN; ONDANSETRON 4 MG/2 ML VIAL IVP ONE; SCOPOLAMINE 1.5MG/72HR PATCH TRANSDERM ONE; ceFAZolin 3 GM in SODIUM CHLORIDE 0.9% 100 ML IVPB ONE
[2017-01-07 14:12] VITALS: RESP 16
[2017-01-07 14:14] LABS: Glucose,Whole Blood 133 mg/dL (75-99)
[2017-01-07] MEDS ORDERED: LIDOCAINE 1% 20 ML VIAL (10MG/ML) FOR IV START INTRADERMA ONE (14:14)
[2017-01-07 14:19] LABS: Basophils # (A) 0.1 k/uL (0-0.2); Basophils % (A) 1 %; CH 27.3; Eosinophils # (A) 0.2 k/uL (0-0.7); Eosinophils % (A) 2 %; HCT 36.4 % (34.0-46.0); HDW 2.79; HGB 11.9 gm/dL (11.4-16.0); Luc # (Auto) 0.47; Luc % (Auto) 3; Lymphocytes # (A) 2.7 k/uL (1.0-4.8); Lymphocytes % (A) 20 %; MCH 28.1 pg (25.0-35.0); MCHC 32.7 g/dL (31.0-37.0); Mean Platelet Volume 7.4; Monocytes # (A) 0.8 k/uL (0-1.0); Monocytes % (A) 6 %; Neutrophils # (A) 9.6 k/uL (1.3-7.7); Neutrophils % (A) 69 %; RBC 4.23 m/uL (3.80-5.40); RDW 15.8 % (11.5-15.5); WBC 13.8 k/uL (3.8-10.6); WBC (Perox) 13.63
[2017-01-07 14:30] LABS: ALT 40 U/L (9-52); AST 37 U/L (14-36); Alkaline Phosphatase 120 U/L (38-126); Anion Gap 14 mmol/L; Blood Urea Nitrogen 12 mg/dL (7-17); Calcium 9.5 mg/dL (8.4-10.2); Carbon Dioxide 24 mmol/L (22-30); Chloride 105 mmol/L (98-107); Glucose 142 mg/dL (74-99); Non-African American GFR(MDRD) >60 (>60 ml/min/1.73 sqM); Potassium 3.3 mmol/L (3.5-5.1); Sodium 143 mmol/L (137-145); Total Bilirubin 0.7 mg/dL (0.2-1.3); Total Protein 7.3 g/dL (6.3-8.2)
[2017-01-07] MEDS ORDERED: SUCCINYLCHOLINE CHLORIDE 100 MG/5 ML SYR IV ONE (15:49)
[2017-01-07] MEDS ORDERED: PROPOFOL 10 MG/ML 20 ML VIAL IV ONE (15:49)
[2017-01-07] MEDS ORDERED: ePHEDrine 50 MG/ML 1 ML AMP ONE (15:49)
[2017-01-07] MEDS ORDERED: ROCURONIUM BROMIDE 10 MG/ML 10 ML VIAL IV ONE (15:49)
[2017-01-07] MEDS ORDERED: GLYCOPYRROLATE 0.2 MG/ML 2 ML VIAL ONE (15:49)
[2017-01-07] MEDS ORDERED: NEOSTIGMINE 1 MG/ML 10 ML VIAL ONE (15:49)
[2017-01-07] MEDS ORDERED: LIDOCAINE 1% INJ 10MG/ML (20 ML MDV) ONE (15:49)
[2017-01-07] MEDS ORDERED: HYDROmorphone (PF) 1 MG/ML ONE (15:49)
[2017-01-07] MEDS ORDERED: MIDAZOLAM 2 MG/2 ML VIAL ONE (15:49)
[2017-01-07] MEDS ORDERED: fentaNYL (PF) 50 MCG/ML 2 ML AMP ONE (15:49)
[2017-01-07] MEDS ORDERED: LIDOCAINE 2%-EPI 1:100,000 20 ML VIAL SQ ONE (16:51)
[2017-01-07] MEDS ORDERED: NALOXONE 0.4 MG/ML 1 ML VIAL IV PRN (17:30)
[2017-01-07] MEDS ORDERED: METOCLOPRAMIDE 5 MG/ML 2 ML VIAL IVP PRN (17:30)
[2017-01-07] MEDS ORDERED: HYDROcodone/APAP 5-325MG 1 EACH TAB PO PRN (17:30)
[2017-01-07] MEDS ORDERED: ONDANSETRON 4 MG/2 ML VIAL IVP PRN (17:30)
[2017-01-07] MEDS ORDERED: ACETAMINOPHEN TAB 325 MG TAB PO PRN (17:30)
--- NOTE | 2017-01-07 17:30 | P.PCN ---
Date of Procedure: 01/07/17 Preoperative Diagnosis: Gallstone pancreatitis, acute cholecystitis, leukocytosis, morbid obesity Postoperative Diagnosis: Same, symptomatic gallstones Procedure(s) Performed: Robotic-assisted laparoscopic cholecystectomy, multiport Implants: Anesthesia: GETA, local (20 mL .5% Marcaine with epinephrine) Surgeon: Linnea Watts Estimated Blood Loss (ml): 5 Pathology: other (Gallstones with gallbladder) Condition: stable Disposition: same day Indications for Procedure: Operative Findings: 1. Large 3 cm gallstones with thickened gallbladder wall consistent with acute cholecystitis. 2. Edema along the pancreatic head without hemorrhagic pancreatitis. 3. Console time of 19 minutes. Description of Procedure:
[2017-01-07 17:39] VITALS: TEMP 98.1
[2017-01-07 17:49] LABS: Glucose,Whole Blood 156 mg/dL (75-99)
--- NOTE | 2017-01-07 18:31 | P.PN ---
Progress Note - Text Patient seen and evaluated. Her pain is well-controlled. No reports of nausea and vomiting. Patient is cleared for discharge from the recovery room. Follow- up in the office in 10 days.
[2017-01-07] MEDS ORDERED: LACTATED RINGERS 1,000 ML IV ONE (18:36)
[2017-01-07 19:34] VITALS: BP 140/78; PULSE 96
[2017-01-07] MEDS ORDERED: HYDROcodone/APAP 5-325MG 1 EACH TAB PO ONE (19:36)
== END 2017-01-07 20:10 | disposition home or self-care (01) ==
LOC: OR 13:09
PROVIDERS: ATTEND Surgery Plastic and Reconstructive Surgery
DX: K80.10 Calculus of gallbladder with chronic cholecystitis without obstruction (principal); D72.829 Elevated white blood cell count, unspecified; E66.01 Morbid (severe) obesity due to excess calories; Z68.38 Body mass index [BMI] 38.0-38.9, adult; J45.909 Unspecified asthma, uncomplicated; I25.10 Atherosclerotic heart disease of native coronary artery without angina pectoris; I10 Essential (primary) hypertension; E11.9 Type 2 diabetes mellitus without complications; Z79.84 Long term (current) use of oral hypoglycemic drugs; K21.9 Gastro-esophageal reflux disease without esophagitis; E78.5 Hyperlipidemia, unspecified; G47.33 Obstructive sleep apnea (adult) (pediatric); F41.9 Anxiety disorder, unspecified; Z79.82 Long term (current) use of aspirin; Z79.899 Other long term (current) drug therapy; Z91.041 Radiographic dye allergy status
CPT/HCPCS: 47562; 93005; 88304; 80053; 83690; 85025; J2250; J1644; J1100; J2710; J0690; J2405; J2001; J3010; J1170; J0330; J2704

== ENCOUNTER → 2020-08-19 | Outpatient (CLI) | payer MEDICARE ==
[2020-08-20 00:50] LABS: Hemoglobin A1C 7.2 % (4.0-6.0)
[2020-08-20 00:51] LABS: C-Peptide 3.57 ng/mL (0.81-3.85)
[2020-08-20 07:15] LABS: African American GFR (CKD) 68.9 (60.0-200.0); Albumin 5.1 g/dL (3.80-4.90); Albumin/Globulin Ratio 2.13 (1.60-3.17); Anion Gap 11.5 mmol/L (4.00-12.00); Calcium 10.5 mg/dL (8.7-10.3); Carbon Dioxide 20.5 mmol/L (21.6-31.8); Chol/HDL Ratio 4.62; Globulin 2.4 g/dL (1.6-3.3); LDL Cholesterol,Calculated 104.2 mg/dL (0.0-131.0); Non-African American GFR(CKD) 59.5 (60.0-200.0); Potassium 4.5 mmol/L (3.5-5.5); Total Bilirubin 0.4 mg/dL (0.3-1.2); Total Protein 7.5 g/dL (6.2-8.2); VLDL Calculation 36.8 mg/dL (5.00-40.00)
== END | disposition home or self-care (01) ==
LOC: LABWHC1 13:38
PROVIDERS: ATTEND Internal Medicine Endocrinology, Diabetes & Metabolism
DX: E11.65 Type 2 diabetes mellitus with hyperglycemia (principal)
CPT/HCPCS: 36415; 80053; 80061; 83036; 84443; 84681

== ENCOUNTER → 2021-02-06 | Outpatient (CLI) | payer MEDICARE ==
--- NOTE | 2021-02-06 13:31 | US ---
EXAMINATION TYPE: US mass soft tissue chest/back DATE OF EXAM: 02/06/2021 COMPARISON: NONE CLINICAL HISTORY: M79.9 soft tissue disorder. At patient's palpable is a well circumscribed 1.2 x 0.7 x 1.2cm mass. IMPRESSION: 1. Solid nodule at the level of the patient's palpable abnormality. This is nonspecific. Additional w orkup is recommended.
== END | disposition home or self-care (01) ==
LOC: RADUSWWP 12:33
PROVIDERS: ATTEND Internal Medicine
DX: R22.2 Localized swelling, mass and lump, trunk (principal)

== ENCOUNTER → 2021-03-04 | Outpatient (CLI) | payer MEDICARE ==
--- NOTE | 2021-03-04 14:58 | CT ---
EXAMINATION TYPE: CT chest w con DATE OF EXAM: 03/04/2021 COMPARISON: None HISTORY: Mass in left upper chest , under clavicle CT DLP: 728 mGycm Automated exposure control for dose reduction was used. CONTRAST: CT scan of the chest is performed with IV Contrast, patient injected with 100 ml mL of Isovue 300. FINDINGS: LUNGS: The lungs are grossly clear, there is no concerning parenchymal mass or nodule identified. T here is no pleural effusion or pneumothorax seen. The tracheobronchial tree is patent. MEDIASTINUM: There are no greater than 1 cm hilar or mediastinal lymph nodes. No pericardial effusi on is seen. Thoracic aorta is of normal caliber. The heart is not enlarged. UPPER ABDOMEN: No significant abnormality appreciated. OTHER: No distinct mass in the region of the left clavicle. IMPRESSION: No significant abnormality seen. Correlate clinically.
== END | disposition home or self-care (01) ==
LOC: RADCTMAIN 12:43
PROVIDERS: ATTEND Internal Medicine
DX: R22.2 Localized swelling, mass and lump, trunk (principal)
CPT/HCPCS: 82565; 84520; 71260; 36415; Q9967

== ENCOUNTER → 2021-09-11 | Outpatient (CLI) | payer MEDICARE ==
[2021-09-11 19:32] LABS: ALT 15 U/L (8-44); AST 21 U/L (13-35); African American GFR (CKD) 71.1 (60.0-200.0); Albumin 4.6 g/dL (3.8-4.9); Albumin/Globulin Ratio 1.36 (1.60-3.17); Alkaline Phosphatase 62 U/L (41-126); BUN/Creat Ratio 19.71 Ratio (12.00-20.00); Blood Urea Nitrogen 19.1 mg/dL (9.0-27.0); Calcium 10.2 mg/dL (8.7-10.3); Carbon Dioxide 20.9 mmol/L (20.0-27.5); Chloride 97 mmol/L (96-109); Chol/HDL Ratio 5.29 Ratio; Globulin 3.4 g/dL (1.6-3.3); Glucose 446 mg/dL (70-110); LDL Cholesterol,Calculated 92.9 mg/dL (0.0-131.0); Non-African American GFR(CKD) 61.4 (60.0-200.0); Potassium 4.3 mmol/L (3.5-5.5); Sodium 133 mmol/L (135-145); Total Protein 7.9 g/dL (6.2-8.2)
[2021-09-11 19:55] LABS: Urine Creatinine 77.7 mg/dL (28.0-217.0)
== END | disposition home or self-care (01) ==
LOC: LABWHC1 10:45
PROVIDERS: ATTEND Internal Medicine Endocrinology, Diabetes & Metabolism
DX: E11.65 Type 2 diabetes mellitus with hyperglycemia (principal)
CPT/HCPCS: 36415; 80053; 80061; 82043; 82570; 83036; 84443

== ENCOUNTER → 2021-12-15 | Outpatient (CLI) | payer MEDICARE ==
[2021-12-15 19:08] LABS: ALT 12 U/L (8-44); AST 19 U/L (13-35); African American GFR (CKD) 90.1 (60.0-200.0); Albumin 4.2 g/dL (3.8-4.9); Albumin/Globulin Ratio 1.41 (1.60-3.17); Alkaline Phosphatase 58 U/L (41-126); BUN/Creat Ratio 15.91 Ratio (12.00-20.00); Blood Urea Nitrogen 12.6 mg/dL (9.0-27.0); Calcium 9.9 mg/dL (8.7-10.3); Carbon Dioxide 24.4 mmol/L (20.0-27.5); Chloride 101 mmol/L (96-109); Chol/HDL Ratio 3.71 Ratio; Glucose 330 mg/dL (70-110); LDL Cholesterol,Calculated 74.2 mg/dL (0.0-131.0); Non-African American GFR(CKD) 77.8 (60.0-200.0); Potassium 4.2 mmol/L (3.5-5.5); Sodium 137 mmol/L (135-145); Total Protein 7.2 g/dL (6.2-8.2)
== END | disposition home or self-care (01) ==
LOC: LABWHC1 11:30
PROVIDERS: ATTEND Internal Medicine Endocrinology, Diabetes & Metabolism
DX: E11.65 Type 2 diabetes mellitus with hyperglycemia (principal)
CPT/HCPCS: 36415; 80053; 80061; 82043; 82570; 83036; 84443

== ENCOUNTER → 2022-03-29 | Outpatient (CLI) | payer MEDICARE ==
[2022-03-29 18:48] LABS: African American GFR (CKD) 60.6 (60.0-200.0); Albumin 4.6 g/dL (3.8-4.9); Anion Gap 11.9 mmol/L (10.00-18.00); BUN/Creat Ratio 27.27 Ratio (12.00-20.00); Calcium 10.3 mg/dL (8.7-10.3); Carbon Dioxide 26.1 mmol/L (20.0-27.5); Non-African American GFR(CKD) 52.3 (60.0-200.0); Phosphorus 4.6 mg/dL (2.4-5.1); Potassium 4.2 mmol/L (3.5-5.5)
== END | disposition home or self-care (01) ==
LOC: LABWHC1 13:53
PROVIDERS: ATTEND Internal Medicine Cardiovascular Disease
DX: R63.4 Abnormal weight loss (principal); R55 Syncope and collapse
CPT/HCPCS: 36415; 80069; 85379

== ENCOUNTER → 2022-08-02 | Outpatient (CLI) | payer MEDICARE ==
[2022-08-02 19:30] LABS: ALT 483 U/L (8-44); AST 425 U/L (13-35); African American GFR (CKD) 49.5 (60.0-200.0); Albumin 4.2 g/dL (3.8-4.9); Albumin/Globulin Ratio 1.17 (1.60-3.17); Alkaline Phosphatase 194 U/L (41-126); BUN/Creat Ratio 20.31 Ratio (12.00-20.00); Blood Urea Nitrogen 26.4 mg/dL (9.0-27.0); Calcium 10.2 mg/dL (8.7-10.3); Carbon Dioxide 24.6 mmol/L (20.0-27.5); Chloride 99 mmol/L (96-109); Chol/HDL Ratio 4.89 Ratio; Globulin 3.6 g/dL (1.6-3.3); Glucose 113 mg/dL (70-110); LDL Cholesterol,Calculated 105.6 mg/dL (0.0-131.0); Non-African American GFR(CKD) 42.7 (60.0-200.0); Potassium 3.9 mmol/L (3.5-5.5); Sodium 137 mmol/L (135-145); Total Protein 7.8 g/dL (6.2-8.2)
== END | disposition home or self-care (01) ==
LOC: LABWHC1 10:59
PROVIDERS: ATTEND Internal Medicine Endocrinology, Diabetes & Metabolism
DX: E11.65 Type 2 diabetes mellitus with hyperglycemia (principal)
CPT/HCPCS: 36415; 80053; 80061; 82043; 82306; 82570; 83036; 83970; 84443

== ENCOUNTER → 2022-10-06 | Outpatient (CLI) | payer MEDICARE ==
[2022-10-06 20:20] LABS: ALT 16 U/L (8-44); AST 34 U/L (13-35); African American GFR (CKD) 47.4 (60.0-200.0); Albumin 4.1 g/dL (3.8-4.9); Albumin/Globulin Ratio 1.38 (1.60-3.17); Alkaline Phosphatase 49 U/L (41-126); BUN/Creat Ratio 15.97 Ratio (12.00-20.00); Blood Urea Nitrogen 21.4 mg/dL (9.0-27.0); Calcium 9.9 mg/dL (8.7-10.3); Carbon Dioxide 24.6 mmol/L (20.0-27.5); Chloride 102 mmol/L (96-109); Chol/HDL Ratio 3.08 Ratio; Glucose 80 mg/dL (70-110); LDL Cholesterol,Calculated 43.9 mg/dL (0.0-131.0); Non-African American GFR(CKD) 40.9 (60.0-200.0); Potassium 4.2 mmol/L (3.5-5.5); Sodium 140 mmol/L (135-145); Total Protein 7.1 g/dL (6.2-8.2)
== END | disposition home or self-care (01) ==
LOC: LABWHC1 12:17
PROVIDERS: ATTEND Internal Medicine Endocrinology, Diabetes & Metabolism
DX: E11.65 Type 2 diabetes mellitus with hyperglycemia (principal)
CPT/HCPCS: 36415; 80053; 80061; 82043; 82306; 82570; 83036; 83970; 84443

== ENCOUNTER 2023-02-08 01:00 | Emergency (ER) | payer MEDICARE ==
[2023-02-08 01:12] LABS: Glucose,Whole Blood 60 mg/dL (70-110)
[2023-02-08] MEDS ORDERED: DEXTROSE 50% SYRINGE 50 ML IVP STA (01:19)
[2023-02-08 01:23] VITALS: RESP 18; TEMP 98.2
[2023-02-08 01:43] LABS: Basophils # (A) 0.1 k/uL (0-0.2); Basophils % (A) 1 %; Eosinophils # (A) 0.2 k/uL (0-0.7); Eosinophils % (A) 2 %; HCT 31.3 % (34.0-46.0); HGB 10.4 gm/dL (11.4-16.0); Lymphocytes # (A) 2.2 k/uL (1.0-4.8); Lymphocytes % (A) 25 %; MCH 29.2 pg (25.0-35.0); MCHC 33.1 g/dL (31.0-37.0); MCV 88.2 fL (80.0-100.0); Mean Platelet Volume 8.6; Monocytes # (A) 0.7 k/uL (0-1.0); Monocytes % (A) 8 %; Neutrophils # (A) 5.7 k/uL (1.3-7.7); Neutrophils % (A) 63 %; Platelet Count 248 k/uL (150-450); RBC 3.55 m/uL (3.80-5.40); RDW 13.7 % (11.5-15.5); WBC 9.1 k/uL (3.8-10.6)
[2023-02-08 01:50] LABS: Glucose,Whole Blood 198 mg/dL (70-110)
[2023-02-08 01:54] LABS: ALT 17 U/L (4-34); AST 37 U/L (14-36); African American GFR (CKD) 49 (>60 ml/min/1.73 sqM); Albumin 4.2 g/dL (3.5-5.0); Alkaline Phosphatase 56 U/L (38-126); Anion Gap 16 mmol/L; Blood Urea Nitrogen 29 mg/dL (7-17); Calcium 9.5 mg/dL (8.4-10.2); Carbon Dioxide 23 mmol/L (22-30); Chloride 101 mmol/L (98-107); Glucose 53 mg/dL (74-99); Lipase 490 U/L (23-300); Non-African American GFR(CKD) 42 (>60 ml/min/1.73 sqM); Sodium 140 mmol/L (137-145); Total Bilirubin 0.6 mg/dL (0.2-1.3)
[2023-02-08 02:10] LABS: Glucose,Whole Blood 202 mg/dL (70-110)
[2023-02-08 02:46] LABS: Appearance,Urine Cloudy (Clear); Bacteria,Urine Rare /hpf; Bilirubin,Urine Negative (Negative); Blood,Urine Negative (Negative); Color,Urine Light Yellow; Glucose,Urine (UA) 4+ (Negative); Ketones,Urine Negative (Negative); Leukocyte Esterase,Urine Large (Negative); Mucus,Urine Rare /hpf; Nitrite,Urine Negative (Negative); Protein,Urine Negative (Negative); RBC,Urine 1 /hpf (0-5); Specific Gravity,Urine 1.014 (1.001-1.035); Squamous Epithelial Cell,Urine 4 /hpf (0-4); Urobilinogen,Urine <2.0 mg/dL (<2.0); WBC,Urine 6 /hpf (0-5)
[2023-02-08 02:48] LABS: Glucose,Whole Blood 198 mg/dL (70-110)
[2023-02-08 02:58] VITALS: BP 117/69; PULSE 66
[2023-02-08] MEDS ORDERED: SODIUM CHLORIDE 0.9% 1,000 ML IV STA (03:04)
[2023-02-08] MEDS ORDERED: POTASSIUM CHLORIDE ER 20 MEQ TAB.ER PO STA (03:04)
--- NOTE | 2023-02-08 03:32 | ED ---
General Adult HPI - General Chief complaint: Recheck/Abnormal Lab/Rx Stated complaint: DIABETIC ISSUES Time Seen by Provider: 02/08/23 01:18 Source: patient Mode of arrival: EMS Limitations: no limitations - History of Present Illness Initial comments: Patient is a 67-year-old female who presents the emergency department for hypoglycemia. Patient is a type II diabetic on tujeo and metformin. She started NovoLog today prescribed by her primary care provider. She is prescribed 8 units before meals and has taken the NovoLog before breakfast and lunch. Patient felt shaky and checked her blood sugar it was 57. She denies any other symptoms no chest pain, shortness of breath, lightheadedness, dizziness, nausea, vomiting, abdominal pain. She was given 2 glucose by EMS and when she arrived glucose was 53. - Related Data Home Medications Medication Instructions Recorded Confirmed Cyclobenzaprine [Flexeril] 10 mg PO BID PRN 12/26/16 12/25/21 DULoxetine HCL [Cymbalta] 60 mg PO HS 12/26/16 12/25/21 Fenofibrate Nanocrystallized 145 mg PO HS 12/26/16 12/25/21 [Tricor] Topiramate [Topamax] 25 mg PO TID 12/26/16 12/25/21 amLODIPine [Norvasc] 2.5 mg PO DAILY 12/26/16 12/25/21 metFORMIN HCL [Glucophage] 1,000 mg PO BID 12/26/16 12/25/21 Aspirin [Adult Low Dose Aspirin EC] 81 mg PO DAILY 01/05/17 12/25/21 Zolpidem [Ambien] 10 mg PO HS 01/05/17 12/25/21 ALPRAZolam [Xanax] 0.25 mg PO DAILY PRN 12/25/21 12/25/21 Cholecalciferol [Vitamin D3 (25 50 mcg PO DAILY 12/25/21 12/25/21 Mcg = 1000 Iu)] Cyanocobalamin (Vitamin B-12) 1,000 mcg PO DAILY 12/25/21 12/25/21 [Vitamin B-12] Glimepiride [Amaryl] 4 mg PO DAILY 12/25/21 12/25/21 Insulin Glargine,Hum.rec.anlog 40 units SQ HS 12/25/21 12/25/21 [Rogerio Ambriz] Semaglutide [Rybelsus] 7 mg PO DAILY 12/25/21 12/25/21 Simvastatin [Zocor] 20 mg PO HS 12/25/21 12/25/21 Previous Rx's Medication Instructions Recorded hydroCHLOROthiazide [Hydrodiuril] 50 mg PO DAILY #30 tab 12/17/21 Allergies Allergy/AdvReac Type Severity Reaction Status Date / Time Iodinated Contrast Media Allergy Rash/Hives Verified 12/25/21 21:22 [Iodinated Contrast- Oral and IV Dye] iothalamate meglumine Allergy Rash/Hives Verified 12/25/21 21:22 [From [place]] lactose Allergy Diarrhea Verified 12/25/21 21:22 Review of Systems ROS Statement: Those systems with pertinent positive or pertinent negative responses have been documented in the HPI. ROS Other: All systems not noted in ROS Statement are negative. Past Medical History Past Medical History: Asthma, Coronary Artery Disease (CAD), Diabetes Mellitus, GERD/Reflux, Hyperlipidemia, Hypertension, Sleep Apnea/CPAP/BIPAP Additional Past Medical History / Comment(s): gallstones, recent pancreatitis, migraines, mild coronary artery disease, mild asthma, not using cpap, hx anemia, History of Any Multi-Drug Resistant Organisms: None Reported Past Surgical History: Breast Surgery, Heart Catheterization, Orthopedic Surgery, Tonsillectomy Additional Past Surgical History / Comment(s): left breast lumpectomy("precancer"), fatty pocket on left side of back, abdominoplasty, breast reduction, arthroscopy shoulder surgery(?rt), Past Anesthesia/Blood Transfusion Reactions: No Reported Reaction Past Psychological History: Anxiety, Depression Smoking Status: Never smoker Past Alcohol Use History: None Reported Past Drug Use History: None Reported - Past Family History Mother Family Medical History: No Reported History Additional Family Medical History / Comment(s): . Father Additional Family Medical History / Comment(s): dementia runs on dads side of family General Exam Limitations: no limitations General appearance: alert Eye exam: Present: normal appearance, PERRL, EOMI. Absent: scleral icterus, conjunctival injection, periorbital swelling Respiratory exam: Present: normal lung sounds bilaterally. Absent: respiratory distress, wheezes, rales, rhonchi, stridor Cardiovascular Exam: Present: regular rate, normal rhythm, normal heart sounds. Absent: systolic murmur, diastolic murmur, rubs, gallop, clicks GI/Abdominal exam: Present: soft, normal bowel sounds. Absent: distended, tenderness, guarding, rebound, rigid Neurological exam: Present: alert Psychiatric exam: Present: normal affect, normal mood Skin exam: Present: warm, dry, intact, normal color. Absent: rash Course Vital Signs 02/08/23 02/08/23 01:12 02:51 Temperature 98.2 F Pulse Rate 84 66 Respiratory 18 18 Rate Blood Pressure 128/82 117/69 O2 Sat by Pulse 97 97 Oximetry Medical Decision Making - Medical Decision Making Was pt. sent in by a medical professional or institution (, PA, THREAD TWISTER, urgent care, hospital, or care home...) When possible be specific @ -No Did you speak to anyone other than the patient for history (EMS, parent, family, police, friend...)? What history was obtained from this source @ -EMS Did you review nursing and triage notes (agree or disagree)? Why? @ -I reviewed and agree with nursing and triage notes Were old charts reviewed (outside hosp., previous admission, EMS record, old EKG, old radiological studies, urgent care reports/EKG's, care home records)? Report findings @ -No old charts were reviewed Differential Diagnosis (chest pain, altered mental status, abdominal pain women, abdominal pain men, vaginal bleeding, weakness, fever, dyspnea, syncope, headache, dizziness, GI bleed, back pain, seizure, CVA, palpatations, mental health)? @ -not applicable EKG interpreted by me (3pts min.). @ -As above X-rays interpreted by me (1pt min.). @ -None done CT interpreted by me (1pt min.). @ -None done U/S interpreted by me (1pt. min.). @ -None done What testing was considered but not performed or refused? (CT, X-rays, U/S, labs)? Why? @ -None What meds were considered but not given or refused? Why? @ -None Did you discuss the management of the patient with other professionals (professionals i.e. , PA, THREAD TWISTER, lab, RT, psych nurse, social services analyst, clean up worker, teacher, security control room officer, case supervisor)? Give summary @ -No Was smoking cessation discussed for >3mins.? @ -No Was critical care preformed (if so, how long)? @ -No Were there social determinants of health that impacted care today? How? (Homelessness, low income, unemployed, alcoholism, drug addiction, transportation, low edu. Level, literacy, decrease access to med. care, half-way, rehab)? @ -No Was there de-escalation of care discussed even if they declined (Discuss DNR or withdrawal of care, Hospice)? DNR status @ -No What co-morbidities impacted this encounter? (DM, HTN, Smoking, COPD, CAD, Cancer, CVA, ARF, Chemo, Hep., AIDS, mental health diagnosis, sleep apnea, morbid obesity)? @ -None Was patient admitted / discharged? Hospital course, mention meds given and route, prescriptions, significant lab abnormalities, going to OR and other pertinent info. @ -67-year-old who started NovoLog today presenting for hypoglycemia. Blood sugar is 53. Patient is well-appearing. Patient given 1 amp reevaluation blood sugar is 198. There is hypokalemia at 3.0. Lipase is 490. Patient does not have abdominal pain, nausea, vomiting. Patient given IV fluids and potassium was replenished. She was observed closely in the emergency department she did not have any episodes of hypoglycemia. Patient n stable medical condition for discharge. We discussed hypoglycemia in detail. She will reduce her NovoLog to 4 units before meals until following up with her primary care provider. Return parameters discussed Undiagnosed new problem with uncertain prognosis? @ -No Drug Therapy requiring intensive monitoring for toxicity (Heparin, Nitro, Insulin, Cardizem)? @ -No Were any procedures done? @ -No Diagnosis/symptom? @ Hypoglycemia Acute, or Chronic, or Acute on Chronic? @ -Acute Uncomplicated (without systemic symptoms) or Complicated (systemic symptoms)? @ -Uncomplicated Side effects of treatment? @ -No Exacerbation, Progression, or Severe Exacerbation? @ -No Poses a threat to life or bodily function? How? (Chest pain, USA, VT, pneumonia, PE, COPD, DKA, ARF, appy, cholecystitis, CVA, Diverticulitis, Homicidal, Suicidal, threat to staff... and all critical care pts) @ -No Dr. Heaton is my attending - Lab Data Result diagrams: 02/08/23 01:20 02/08/23 01:20 Lab Results 02/08/23 02/08/23 02/08/23 Range/Units 01:11 01:20 01:20 WBC 9.1 (3.8-10.6) k/uL RBC 3.55 L (3.80-5.40) m/uL Hgb 10.4 L (11.4-16.0) gm/dL Hct 31.3 L (34.0-46.0) % MCV 88.2 (80.0-100.0) fL MCH 29.2 (25.0-35.0) pg MCHC 33.1 (31.0-37.0) g/dL RDW 13.7 (11.5-15.5) % Plt Count 248 (150-450) k/uL MPV 8.6 Neutrophils % 63 % Lymphocytes % 25 % Monocytes % 8 % Eosinophils % 2 % Basophils % 1 % Neutrophils # 5.7 (1.3-7.7) k/uL Lymphocytes # 2.2 (1.0-4.8) k/uL Monocytes # 0.7 (0-1.0) k/uL Eosinophils # 0.2 (0-0.7) k/uL Basophils # 0.1 (0-0.2) k/uL Sodium 140 (137-145) mmol/L Potassium 3.0 L (3.5-5.1) mmol/L Chloride 101 (98-107) mmol/L Carbon Dioxide 23 (22-30) mmol/L Anion Gap 16 mmol/L BUN 29 H (7-17) mg/dL Creatinine 1.31 H (0.52-1.04) mg/dL Est GFR (CKD-EPI)AfAm 49 (>60 ml/min/1.73 sqM) Est GFR (CKD-EPI)NonAf 42 (>60 ml/min/1.73 sqM) Glucose 53 L (74-99) mg/dL POC Glucose (mg/dL) 60 L (70-110) mg/dL POC Glu [employer] ID Jose Alberto Dove Calcium 9.5 (8.4-10.2) mg/dL Total Bilirubin 0.6 (0.2-1.3) mg/dL AST 37 H (14-36) U/L ALT 17 (4-34) U/L Alkaline Phosphatase 56 (38-126) U/L Total Protein 8.0 (6.3-8.2) g/dL Albumin 4.2 (3.5-5.0) g/dL Lipase 490 H (23-300) U/L Urine Color Urine Appearance (Clear) Urine pH (5.0-8.0) Ur Specific [place] (1.001-1.035) Urine Protein (Negative) Urine Glucose (UA) (Negative) Urine Ketones (Negative) Urine Blood (Negative) Urine Nitrite (Negative) Urine Bilirubin (Negative) Urine Urobilinogen (<2.0) mg/dL Ur Leukocyte Esterase (Negative) Urine RBC (0-5) /hpf Urine WBC (0-5) /hpf Ur Squamous Epith Cells (0-4) /hpf Urine Bacteria (None) /hpf Urine Mucus (None) /hpf 02/08/23 02/08/23 02/08/23 Range/Units 01:20 01:47 02:09 WBC (3.8-10.6) k/uL RBC (3.80-5.40) m/uL Hgb (11.4-16.0) gm/dL Hct (34.0-46.0) % MCV (80.0-100.0) fL MCH (25.0-35.0) pg MCHC (31.0-37.0) g/dL RDW (11.5-15.5) % Plt Count (150-450) k/uL MPV Neutrophils % % Lymphocytes % % Monocytes % % Eosinophils % % Basophils % % Neutrophils # (1.3-7.7) k/uL Lymphocytes # (1.0-4.8) k/uL Monocytes # (0-1.0) k/uL Eosinophils # (0-0.7) k/uL Basophils # (0-0.2) k/uL Sodium (137-145) mmol/L Potassium (3.5-5.1) mmol/L Chloride (98-107) mmol/L Carbon Dioxide (22-30) mmol/L Anion Gap mmol/L BUN (7-17) mg/dL Creatinine (0.52-1.04) mg/dL Est GFR (CKD-EPI)AfAm (>60 ml/min/1.73 sqM) Est GFR (CKD-EPI)NonAf (>60 ml/min/1.73 sqM) Glucose (74-99) mg/dL POC Glucose (mg/dL) 198 H 202 H (70-110) mg/dL POC Glu [employer] Jerri Santiago Jessica Calcium (8.4-10.2) mg/dL Total Bilirubin (0.2-1.3) mg/dL AST (14-36) U/L ALT (4-34) U/L Alkaline Phosphatase (38-126) U/L Total Protein (6.3-8.2) g/dL Albumin (3.5-5.0) g/dL Lipase (23-300) U/L Urine Color Light Yellow Urine Appearance Cloudy H (Clear) Urine pH 5.0 (5.0-8.0) Ur Specific [place] 1.014 (1.001-1.035) Urine Protein Negative (Negative) Urine Glucose (UA) 4+ H (Negative) Urine Ketones Negative (Negative) Urine Blood Negative (Negative) Urine Nitrite Negative (Negative) Urine Bilirubin Negative (Negative) Urine Urobilinogen <2.0 (<2.0) mg/dL Ur Leukocyte Esterase Large H (Negative) Urine RBC 1 (0-5) /hpf Urine WBC 6 H (0-5) /hpf Ur Squamous Epith Cells 4 (0-4) /hpf Urine Bacteria Rare H (None) /hpf Urine Mucus Rare H (None) /hpf 02/08/23 02/08/23 Range/Units 02:46 04:07 WBC (3.8-10.6) k/uL RBC (3.80-5.40) m/uL Hgb (11.4-16.0) gm/dL Hct (34.0-46.0) % MCV (80.0-100.0) fL MCH (25.0-35.0) pg MCHC (31.0-37.0) g/dL RDW (11.5-15.5) % Plt Count (150-450) k/uL MPV Neutrophils % % Lymphocytes % % Monocytes % % Eosinophils % % Basophils % % Neutrophils # (1.3-7.7) k/uL Lymphocytes # (1.0-4.8) k/uL Monocytes # (0-1.0) k/uL Eosinophils # (0-0.7) k/uL Basophils # (0-0.2) k/uL Sodium (137-145) mmol/L Potassium (3.5-5.1) mmol/L Chloride (98-107) mmol/L Carbon Dioxide (22-30) mmol/L Anion Gap mmol/L BUN (7-17) mg/dL Creatinine (0.52-1.04) mg/dL Est GFR (CKD-EPI)AfAm (>60 ml/min/1.73 sqM) Est GFR (CKD-EPI)NonAf (>60 ml/min/1.73 sqM) Glucose (74-99) mg/dL POC Glucose (mg/dL) 198 H 159 H (70-110) mg/dL POC Glu Manager [employer] ID Jerri Mckenzie Riva Calcium (8.4-10.2) mg/dL Total Bilirubin (0.2-1.3) mg/dL AST (14-36) U/L ALT (4-34) U/L Alkaline Phosphatase (38-126) U/L Total Protein (6.3-8.2) g/dL Albumin (3.5-5.0) g/dL Lipase (23-300) U/L Urine Color Urine Appearance (Clear) Urine pH (5.0-8.0) Ur Specific [place] (1.001-1.035) Urine Protein (Negative) Urine Glucose (UA) (Negative) Urine Ketones (Negative) Urine Blood (Negative) Urine Nitrite (Negative) Urine Bilirubin (Negative) Urine Urobilinogen (<2.0) mg/dL Ur Leukocyte Esterase (Negative) Urine RBC (0-5) /hpf Urine WBC (0-5) /hpf Ur Squamous Epith Cells (0-4) /hpf Urine Bacteria (None) /hpf Urine Mucus (None) /hpf Disposition Clinical Impression: Hypokalemia, Hypoglycemia Disposition: HOME SELF-CARE Instructions (If sedation given, give patient instructions): Potassium Content of Foods List (ED), Hypoglycemia in a Person with Diabetes (ED) Additional Instructions: Take 4 units before meals instead of 8 units. Increase foods rich in potassium. We talked about foods rich in protein during visit. Foods rich in protein include meat, fish, seafood, nuts, Scottish yogurt, legumes, eggs, cottage cheese, quinoa, ensure drinks. Follow-up with primary care provider in one to 2 days. Return to the emergency department if you experience new, concerning, or worsening symptoms Is patient prescribed a controlled substance at d/c from ED?: No Referrals: Amy Card MD [Primary Care Provider] - 1-2 days
[2023-02-08 04:09] LABS: Glucose,Whole Blood 159 mg/dL (70-110)
== END 2023-02-08 04:43 | disposition home or self-care (01) ==
LOC: EC 01:00
DX: E11.649 Type 2 diabetes mellitus with hypoglycemia without coma (principal); E87.6 Hypokalemia; J45.909 Unspecified asthma, uncomplicated; I25.10 Atherosclerotic heart disease of native coronary artery without angina pectoris; E11.9 Type 2 diabetes mellitus without complications; I10 Essential (primary) hypertension; G47.30 Sleep apnea, unspecified; E78.5 Hyperlipidemia, unspecified; F41.9 Anxiety disorder, unspecified; F32.A Depression, unspecified; Z79.4 Long term (current) use of insulin; Z79.899 Other long term (current) drug therapy; Z79.82 Long term (current) use of aspirin; Z79.84 Long term (current) use of oral hypoglycemic drugs; Z91.041 Radiographic dye allergy status; Z91.011 Allergy to milk products; Z88.8 Allergy status to other drugs, medicaments and biological substances
CPT/HCPCS: 36415; 80053; 81001; 83690; 85025; 96361; 96374; 99284

== ENCOUNTER → 2023-03-14 | Outpatient (CLI) | payer MEDICARE ==
--- NOTE | 2023-03-14 17:19 | US ---
EXAMINATION TYPE: US thyroid st tissue head/neck DATE OF EXAM: 03/14/2023 COMPARISON: NONE CLINICAL INDICATION: Female, 67 years old with history of R59.0 ENLARGED LYMPHNODES; Neck swelling Right neck: 1.9 x 1.1 x 1.1cm lymph node Left neck: appears wnl IMPRESSION: 1. Enlarged right neck node. If Additional workup would be of benefit, CT soft tissue neck be perform ed with contrast.
--- NOTE | 2023-03-14 17:45 | BD ---
EXAMINATION TYPE: Axial Bone Density DATE OF EXAM: 03/14/2023 CLINICAL HISTORY: 67 years old Female. ICD-10 CODE: N95.8 MENOPAUSAL DISORDER Height: 70" Weight: 182.1lbs FRAX RISK QUESTIONS: Alcohol (3 or more units per day): No Family History (Parent hip fracture): No Glucocorticoids (More than 3mos): No (Ex: prednisone, prednisolone, methylprednisolone, dexamethasone, and hydrocortisone). History of Fracture in Adulthood: No Secondary Osteoporosis: 1. Type 1 Diabetes: No 2. Hyperthyroidism: No 3. Menopause before 45: No 4. Malnutrition: No 5. Chronic liver disease: No Rheumatoid Arthritis: No Current Tobacco Use: No RISK FACTORS HISTORY OF: Hip Fracture (Right/Left): No Spine Fracture: No History of Wrist Fracture: No Surgery to Spine/Hip(right/left)/Wrist (right/left): No Family History of Osteoporosis: No Active: Yes Diet low in dairy products/other sources of calcium: No Postmenopausal woman: Yes Lost more than 2 inches in height since high school: No Frequent falls: Yes Poor Health: No Hyperparathyroidism: No Adrenal Insufficiency: No MEDICATIONS: Prednisone or other steroids: No Thyroid Medications: No Osteoporosis Medications: No Additional Medications: Diabetic medications (insulin, metformin, liporide), blood pressure meds, cho lesterol meds, calcium Additional History: None EXAM MEASUREMENTS: Bone mineral densitometry was performed using the [employer] System. Bone mineral density as measured about the Lumbar spine is: ----- L1-L4(G/cm2): 1.424 T Score Values are as follows: ----- L1: 1.8 ----- L2: 1.4 ----- L3: 0.9 ----- L4: 3.7 ----- L1-L4: 2.0 Z Score Values are as follows: ----- L1: 2.8 ----- L2: 2.4 ----- L3: 2.0 ----- L4: 4.8 ----- L1-L4: 3.1 Bone mineral density has: increased 1.6% since study of: 05/17/2016 Bone mineral density about the R hip (g/cm2): 1.039 Bone mineral density about the L hip (g/cm2): 1.064 T Score values are as follows: -----R Neck: 0.3 -----L Neck: 0.0 -----R Total: 0.2 -----L Total: 0.4 Z Score values are as follows: -----R Neck: 1.5 -----L Neck: 1.2 -----R Total: 1.1 -----L Total: 1.3 Bone mineral density has: decreased -5.7% since study of: 05/17/2016 FRAX%s: The graph provided illustrates a 7.0% chance for a major osteoporotic fx and a 0.3% chance fo r the hips probability for fx in 10 years time. IMPRESSION: Normal (Values between +1 and -1 indicate normal bone mass). Consider repeating this study in 5 year s or sooner if there is some new clinical indication. NOTE: T-SCORE=SD OF THE YOUNG ADULT MEAN.
== END | disposition home or self-care (01) ==
LOC: RADUSWWP 14:11
PROVIDERS: ATTEND Internal Medicine
DX: N95.8 Other specified menopausal and perimenopausal disorders (principal); R59.0 Localized enlarged lymph nodes
CPT/HCPCS: 76536; 77080

== ENCOUNTER → 2023-03-25 | Outpatient (CLI) | payer MEDICARE | END | disposition home or self-care (01) | LOC: RADCTMAIN 11:44 | PROVIDERS: ATTEND Internal Medicine | DX: Z53.9 Procedure and treatment not carried out, unspecified reason (principal) ==

== ENCOUNTER 2023-05-11 10:49 | Emergency (ER) | payer MEDICARE ==
--- NOTE | 2023-05-11 11:54 | ED ---
Recheck HPI - General Source: patient, RN notes reviewed Mode of arrival: ambulatory Limitations: no limitations - History of Present Illness MD Complaint: abnormal lab <Joelle Sandoval - Last Filed: 05/11/23 14:16> <Shine Conway - Last Filed: 05/11/23 16:06> <MadhuivetSharon Amirah - Last Filed: 05/11/23 18:04> - General Chief Complaint: Recheck/Abnormal Lab/Rx Stated Complaint: abn labs Time Seen by Provider: 05/11/23 11:48 - History of Present Illness Initial Comments: This is a 67 year old female who presents to the emergency department for abnormal blood work. She was sent over by her PCP, Dr. Richmond, who said that she had low sodium and potassium but elevated kidney and liver function. Reports a hx of kidney problems but denies known problems with her liver. (Joelle Sandoval) Patient 67-year-old female presenting to the emergency room today with a chief complaint of abnormal blood work. Patient does admit that she went to her PCP yesterday and was noticed to be jaundiced. Blood work obtained. Was notified of results today and advised complete emergency room for further evaluation. Patient does not that one week ago she was very itchy. She states that otherwise she's been feeling well. She denies any other complaints or symptoms. Patient denies any recent fever, chills, shortness of breath, chest pain, back pain, abdominal pain, nausea or vomiting, numbness or tingling, dysuria or hematuria, headaches or visual changes, or any other complaints. (Shine Conway) - Related Data Home Medications Medication Instructions Recorded Confirmed Cyclobenzaprine [Flexeril] 10 mg PO BID PRN 12/26/16 05/11/23 DULoxetine HCL [Cymbalta] 60 mg PO HS 12/26/16 05/11/23 Fenofibrate Nanocrystallized 145 mg PO HS 12/26/16 05/11/23 [Tricor] Topiramate [Topamax] 25 mg PO TID 12/26/16 05/11/23 amLODIPine [Norvasc] 2.5 mg PO DAILY 12/26/16 05/11/23 metFORMIN HCL [Glucophage] 1,000 mg PO BID 12/26/16 05/11/23 Aspirin [Adult Low Dose Aspirin EC] 81 mg PO DAILY 01/05/17 05/11/23 Zolpidem [Ambien] 10 mg PO HS 01/05/17 05/11/23 ALPRAZolam [Xanax] 0.25 mg PO BID PRN 12/25/21 05/11/23 Insulin Glargine,Hum.rec.anlog 20 units SQ BID 12/25/21 05/11/23 [Toujeo Solostar] Simvastatin [Zocor] 20 mg PO HS 12/25/21 05/11/23 Biotin 5 mg PO DAILY 05/11/23 05/11/23 Calcium Carbonate/Vitamin D3 1 tab PO DAILY 05/11/23 05/11/23 [Calcium 600 mg-D3 20 mcg (800 unit)] Previous Rx's Medication Instructions Recorded hydroCHLOROthiazide [Hydrodiuril] 50 mg PO DAILY #30 tab 12/17/21 Allergies Allergy/AdvReac Type Severity Reaction Status Date / Time Iodinated Contrast Media Allergy Rash/Hives Verified 05/11/23 17:23 [Iodinated Contrast- Oral and IV Dye] iothalamate meglumine Allergy Rash/Hives Verified 05/11/23 17:23 [From [place]] lactose AdvReac Diarrhea Verified 05/11/23 17:23 Review of Systems ROS Other: All systems not noted in ROS Statement are negative. <Joelle Sandoval - Last Filed: 05/11/23 14:16> ROS Other: All systems not noted in ROS Statement are negative. <Shine Conway - Last Filed: 05/11/23 16:06> ROS Other: All systems not noted in ROS Statement are negative. <Sharon Lange - Last Filed: 05/11/23 18:04> ROS Statement: Those systems with pertinent positive or pertinent negative responses have been documented in the HPI. Past Medical History Past Medical History: Asthma, Coronary Artery Disease (CAD), Diabetes Mellitus, GERD/Reflux, Hyperlipidemia, Hypertension, Sleep Apnea/CPAP/BIPAP Additional Past Medical History / Comment(s): gallstones, recent pancreatitis, migraines, mild coronary artery disease, mild asthma, not using cpap, hx anemia, History of Any Multi-Drug Resistant Organisms: None Reported Past Surgical History: Breast Surgery, Heart Catheterization, Orthopedic Surgery, Tonsillectomy Additional Past Surgical History / Comment(s): left breast lumpectomy("precancer"), fatty pocket on left side of back, abdominoplasty, breast reduction, arthroscopy shoulder surgery(?rt), Past Anesthesia/Blood Transfusion Reactions: No Reported Reaction Past Psychological History: Anxiety, Depression Smoking Status: Never smoker Past Alcohol Use History: None Reported Past Drug Use History: None Reported - Past Family History Mother Family Medical History: No Reported History Additional Family Medical History / Comment(s): . Father Additional Family Medical History / Comment(s): dementia runs on dads side of family <Joelle Sandoval - Last Filed: 05/11/23 14:16> General Exam Limitations: no limitations <Joelle Sandoval - Last Filed: 05/11/23 14:16> <Shine Conway - Last Filed: 05/11/23 16:06> - General Exam Comments Initial Comments: Visual Physical Exam Vital signs reviewed General: Well-appearing, nontoxic, no acute distress. Head: Normocephalic, atraumatic Eyes: PERRLA, EOMI ENT: Airway patent Chest: Nonlabored breathing Skin: Jaundice Neuro: Alert and oriented 3 Musculoskeletal: No gross abnormalities (Joelle Sandoval) General: The patient is awake and alert, in no distress, and does not appear acutely ill. Eye: Pupils are equal, round and reactive to light, extra-ocular movements are intact. No nystagmus. There is normal conjunctiva bilaterally. Bilateral icterus Ears, nose, mouth and throat: There are moist mucous membranes and no oral lesions. Neck: The neck is supple, there is no tenderness or JVD. Cardiovascular: There is a regular rate and rhythm. No murmur, rub or gallop is appreciated. Respiratory: Lungs are clear to auscultation, respirations are non-labored, breath sounds are equal. No wheezes, stridor, rales, or rhonchi. Gastrointestinal: Nontender. No rebound, guarding. Soft on exam. Musculoskeletal: Normal ROM, no tenderness. Strength 5/5. Sensation intact. Pulses equal bilaterally 2+. Neurological: A&O x 3. CN II-XII intact, There are no obvious motor or sensory deficits. Coordination appears grossly intact. Speech is normal. Skin: Skin is warm and dry and no rashes or lesions are noted. Jaundiced Psychiatric: Cooperative, appropriate mood & affect, normal judgment. (Shine Lozoya) Course Vital Signs 05/11/23 05/11/23 05/11/23 11:14 14:20 16:20 Temperature 98.0 F 97.9 F 98.2 F Pulse Rate 91 91 80 Respiratory 18 18 17 Rate Blood Pressure 107/70 96/67 133/85 O2 Sat by Pulse 100 99 97 Oximetry 05/11/23 17:35 Temperature 98.1 F Pulse Rate 82 Respiratory 17 Rate Blood Pressure 126/79 O2 Sat by Pulse 99 Oximetry Medical Decision Making - Lab Data Result diagrams: 05/11/23 12:04 05/11/23 12:04 <Joelle Sandoval - Last Filed: 05/11/23 14:16> - Lab Data Result diagrams: 05/11/23 12:04 05/11/23 12:04 <Shine Conway - Last Filed: 05/11/23 16:06> - Lab Data Result diagrams: 05/11/23 12:04 05/11/23 12:04 <Sharon Lange - Last Filed: 05/11/23 18:04> - Medical Decision Making I performed the QuickNote portion of this chart. Signed Joelle Sandoval PA-C. (Joelle Sandoval) 1600: Case discussed and signed out to attending physician Dr. Lange at this time (Shine Conway) Was pt. sent in by a medical professional or institution (NORMA Velásquez, SHIPPING AND RECEIVING SPECIALIST, urgent care, hospital, or assisted...) When possible be specific @ -Patient was sent in by Dr. Richmond Did you speak to anyone other than the patient for history (EMS, parent, family, police, friend...)? What history was obtained from this source @ -No Did you review nursing and triage notes (agree or disagree)? Why? @ -I reviewed and agree with nursing and triage notes Were old charts reviewed (outside hosp., previous admission, EMS record, old EKG, old radiological studies, urgent care reports/EKG's, assisted records)? Report findings @ -No old charts were reviewed Differential Diagnosis (chest pain, altered mental status, abdominal pain women, abdominal pain men, vaginal bleeding, weakness, fever, dyspnea, syncope, headache, dizziness, GI bleed, back pain, seizure, CVA, palpatations, mental health, musculoskeletal)? @ -Cholangitis, choledocholithiasis, pancreatic cancer, pancreatitis EKG interpreted by me (3pts min.). @ -not done X-rays interpreted by me (1pt min.). @ -None done CT interpreted by me (1pt min.). @ -Yes and demonstrates stricture of the pancreatic duct concerning for malignancy with multiple enlarged abdominal lymph nodes U/S interpreted by me (1pt. min.). @ -Yes and demonstrates intrahepatic duct dilation What testing was considered but not performed or refused? (CT, X-rays, U/S, labs)? Why? @ -None What meds were considered but not given or refused? Why? @ -None Did you discuss the management of the patient with other professionals (professionals i.e. , PA, SHIPPING AND RECEIVING SPECIALIST, lab, RT, psych nurse, social work administrator, contract sheltered workshop supervisor, teacher, consumer safety officer, counseling case manager)? Give summary @ -Spoke with Dr. Knight at [facility], Dr. richmond - pcp Was smoking cessation discussed for >3mins.? @ -No Was critical care preformed (if so, how long)? @ -No Were there social determinants of health that impacted care today? How? (Homeles sness, low income, unemployed, alcoholism, drug addiction, transportation, low edu. Level, literacy, decrease access to med. care, correction, rehab)? @ -No Was there de-escalation of care discussed even if they declined (Discuss DNR or withdrawal of care, Hospice)? DNR status @ -No What co-morbidities impacted this encounter? (DM, HTN, Smoking, COPD, CAD, Cancer, CVA, ARF, Chemo, Hep., AIDS, mental health diagnosis, sleep apnea, morbid obesity)? @ -hx panreatitis with cholecystectomy Was patient admitted / discharged? Hospital course, mention meds given and route, prescriptions, significant lab abnormalities, going to OR and other pertinent info. @ -Transferred to [facility] Undiagnosed new problem with uncertain prognosis? @ -yes Drug Therapy requiring intensive monitoring for toxicity (Heparin, Nitro, In sulin, Cardizem)? @ -No Were any procedures done? @ -No Diagnosis/symptom? @ -acute jaundice, hyperbilirubinemia, pancreatic duct stricture Acute, or Chronic, or Acute on Chronic? @ -acute Uncomplicated (without systemic symptoms) or Complicated (systemic symptoms)? @ -complicated Side effects of treatment? @ -No Exacerbation, Progression, or Severe Exacerbation? @ -No Poses a threat to life or bodily function? How? (Chest pain, [place], NH, pneumonia, PE, COPD, DKA, ARF, appy, cholecystitis, CVA, Diverticulitis, Homicidal, Suicidal, threat to staff... and all critical care pts) @ -yes - high likelyhood due to diagnosis (Sharon Lange) - Lab Data Lab Results 05/11/23 05/11/23 05/11/23 Range/Units 12:04 12:04 12:04 WBC 6.2 (3.8-10.6) k/uL RBC 3.32 L (3.80-5.40) m/uL Hgb 10.4 L (11.4-16.0) gm/dL Hct 31.2 L (34.0-46.0) % MCV 94.0 (80.0-100.0) fL MCH 31.4 (25.0-35.0) pg MCHC 33.4 (31.0-37.0) g/dL RDW 15.8 H (11.5-15.5) % Plt Count 191 (150-450) k/uL MPV 9.9 Neutrophils % 70 % Lymphocytes % 16 % Monocytes % 8 % Eosinophils % 2 % Basophils % 1 % Neutrophils # 4.3 (1.3-7.7) k/uL Lymphocytes # 1.0 (1.0-4.8) k/uL Monocytes # 0.5 (0-1.0) k/uL Eosinophils # 0.2 (0-0.7) k/uL Basophils # 0.1 (0-0.2) k/uL PT (10.0-12.5) sec INR (<1.2) APTT (22.0-30.0) sec Sodium 134 L (137-145) mmol/L Potassium 3.5 (3.5-5.1) mmol/L Chloride 94 L (98-107) mmol/L Carbon Dioxide 23 (22-30) mmol/L Anion Gap 17 mmol/L BUN 30 H (7-17) mg/dL Creatinine 1.24 H (0.52-1.04) mg/dL Est GFR (CKD-EPI)AfAm 52 (>60 ml/min/1.73 sqM) Est GFR (CKD-EPI)NonAf 45 (>60 ml/min/1.73 sqM) Glucose 232 H (74-99) mg/dL Calcium 9.8 (8.4-10.2) mg/dL Total Bilirubin 15.7 H* (0.2-1.3) mg/dL Conjugated Bilirubin 8.6 H (0.0-0.3) mg/dL Unconjugated Bilirubin 1.2 H (0.0-1.1) mg/dL Delta Bilirubin 5.9 H (0.0-0.2) mg/dL AST 312 H (14-36) U/L ALT 193 H (4-34) U/L Alkaline Phosphatase 720 H (38-126) U/L Total Protein 8.6 H (6.3-8.2) g/dL Albumin 4.0 (3.5-5.0) g/dL Amylase 67 (30-110) U/L Lipase 328 H (23-300) U/L Urine Color Dark Brown Urine Appearance Cloudy H (Clear) Urine pH 5.5 (5.0-8.0) Ur Specific [place] 1.024 (1.001-1.035) Urine Protein Trace H (Negative) Urine Glucose (UA) 1+ H (Negative) Urine Ketones Negative (Negative) Urine Blood Negative (Negative) Urine Nitrite Negative (Negative) Urine Bilirubin 2+ H (Negative) Urine Urobilinogen >12.0 (<2.0) mg/dL Ur Leukocyte Esterase Large H (Negative) Urine RBC 2 (0-5) /hpf Urine WBC 27 H (0-5) /hpf Ur Squamous Epith Cells 1 (0-4) /hpf Urine Mucus Rare H (None) /hpf 05/11/23 Range/Units 14:39 WBC (3.8-10.6) k/uL RBC (3.80-5.40) m/uL Hgb (11.4-16.0) gm/dL Hct (34.0-46.0) % MCV (80.0-100.0) fL MCH (25.0-35.0) pg MCHC (31.0-37.0) g/dL RDW (11.5-15.5) % Plt Count (150-450) k/uL MPV Neutrophils % % Lymphocytes % % Monocytes % % Eosinophils % % Basophils % % Neutrophils # (1.3-7.7) k/uL Lymphocytes # (1.0-4.8) k/uL Monocytes # (0-1.0) k/uL Eosinophils # (0-0.7) k/uL Basophils # (0-0.2) k/uL PT 10.8 (10.0-12.5) sec INR 1.0 (<1.2) APTT 24.7 (22.0-30.0) sec Sodium (137-145) mmol/L Potassium (3.5-5.1) mmol/L Chloride (98-107) mmol/L Carbon Dioxide (22-30) mmol/L Anion Gap mmol/L BUN (7-17) mg/dL Creatinine (0.52-1.04) mg/dL Est GFR (CKD-EPI)AfAm (>60 ml/min/1.73 sqM) Est GFR (CKD-EPI)NonAf (>60 ml/min/1.73 sqM) Glucose (74-99) mg/dL Calcium (8.4-10.2) mg/dL Total Bilirubin (0.2-1.3) mg/dL Conjugated Bilirubin (0.0-0.3) mg/dL Unconjugated Bilirubin (0.0-1.1) mg/dL Delta Bilirubin (0.0-0.2) mg/dL AST (14-36) U/L ALT (4-34) U/L Alkaline Phosphatase (38-126) U/L Total Protein (6.3-8.2) g/dL Albumin (3.5-5.0) g/dL Amylase (30-110) U/L Lipase (23-300) U/L Urine Color Urine Appearance (Clear) Urine pH (5.0-8.0) Ur Specific [place] (1.001-1.035) Urine Protein (Negative) Urine Glucose (UA) (Negative) Urine Ketones (Negative) Urine Blood (Negative) Urine Nitrite (Negative) Urine Bilirubin (Negative) Urine Urobilinogen (<2.0) mg/dL Ur Leukocyte Esterase (Negative) Urine RBC (0-5) /hpf Urine WBC (0-5) /hpf Ur Squamous Epith Cells (0-4) /hpf Urine Mucus (None) /hpf Disposition <Joelle Sandoval - Last Filed: 05/11/23 14:16> <Shine Conway - Last Filed: 05/11/23 16:06> Is patient prescribed a controlled substance at d/c from ED?: No Time of Disposition: 17:59 - Out of Hospital Transfer - Req. Specs Out of Hospital Transfer - Requested Specifics: Other Emergency Center ([facility]) <Sharon Lange - Last Filed: 05/11/23 18:04> Clinical Impression: Hyperbilirubinemia, Pancreatic duct stricture Disposition: OTHER INSTITUTION NOT DEFINED Condition: Serious Referrals: Amy Richmond MD [Primary Care Provider] - 1-2 days
[2023-05-11 12:22] LABS: Basophils # (A) 0.1 k/uL (0-0.2); Basophils % (A) 1 %; Eosinophils # (A) 0.2 k/uL (0-0.7); Eosinophils % (A) 2 %; HCT 31.2 % (34.0-46.0); HGB 10.4 gm/dL (11.4-16.0); Lymphocytes % (A) 16 %; MCH 31.4 pg (25.0-35.0); MCHC 33.4 g/dL (31.0-37.0); Mean Platelet Volume 9.9; Monocytes # (A) 0.5 k/uL (0-1.0); Monocytes % (A) 8 %; Neutrophils # (A) 4.3 k/uL (1.3-7.7); Neutrophils % (A) 70 %; Platelet Count 191 k/uL (150-450); RBC 3.32 m/uL (3.80-5.40); RDW 15.8 % (11.5-15.5); WBC 6.2 k/uL (3.8-10.6)
[2023-05-11 12:30] LABS: ALT 193 U/L (4-34); AST 312 U/L (14-36); African American GFR (CKD) 52 (>60 ml/min/1.73 sqM); Amylase 67 U/L (30-110); Anion Gap 17 mmol/L; Bilirubin, Conjugated 8.6 mg/dL (0.0-0.3); Bilirubin, Delta 5.9 mg/dL (0.0-0.2); Bilirubin,Unconjugated 1.2 mg/dL (0.0-1.1); Blood Urea Nitrogen 30 mg/dL (7-17); Calcium 9.8 mg/dL (8.4-10.2); Carbon Dioxide 23 mmol/L (22-30); Chloride 94 mmol/L (98-107); Glucose 232 mg/dL (74-99); Lipase 328 U/L (23-300); Non-African American GFR(CKD) 45 (>60 ml/min/1.73 sqM); Potassium 3.5 mmol/L (3.5-5.1); Sodium 134 mmol/L (137-145); Total Protein 8.6 g/dL (6.3-8.2)
[2023-05-11 13:11] LABS: Alkaline Phosphatase 720 U/L (38-126); Total Bilirubin 15.7 mg/dL (0.2-1.3)
[2023-05-11 14:44] LABS: Appearance,Urine Cloudy (Clear); Bilirubin,Urine 2+ (Negative); Blood,Urine Negative (Negative); Color,Urine Dark Brown; Glucose,Urine (UA) 1+ (Negative); Ketones,Urine Negative (Negative); Leukocyte Esterase,Urine Large (Negative); Mucus,Urine Rare /hpf; Nitrite,Urine Negative (Negative); PH, Urine 5.5 (5.0-8.0); Protein,Urine Trace (Negative); RBC,Urine 2 /hpf (0-5); Specific Gravity,Urine 1.024 (1.001-1.035); Squamous Epithelial Cell,Urine 1 /hpf (0-4); Urobilinogen,Urine >12.0 mg/dL (<2.0); WBC,Urine 27 /hpf (0-5)
[2023-05-11 15:30] LABS: Partial Thromboplastin Time 24.7 sec (22.0-30.0); Prothrombin Time 10.8 sec (10.0-12.5)
[2023-05-11] MEDS ORDERED: FAMOTIDINE 20 MG/2 ML VIAL IV STA (16:03)
[2023-05-11] MEDS ORDERED: diphenhydrAMINE 50 MG/ML 1 ML VIAL IVP STA (16:03)
[2023-05-11] MEDS ORDERED: methylPREDNISolone SOD SUCCI 125 MG/2 ML VIAL IV STA (16:03)
--- NOTE | 2023-05-11 16:12 | US ---
EXAMINATION TYPE: US abdomen limited DATE OF EXAM: 05/11/2023 COMPARISON: CT 01/26/2017. CLINICAL INDICATION: Female, 67 years old with history of Right upper quadrant, jaundice; Jaundice. GB removed x 2 years ago. Portable EC patient TECHNIQUE: Multiple sonographic images of the right upper quadrant are obtained. FINDINGS: EXAM MEASUREMENTS: Liver Length: 17.9 cm CBD: 1.4 cm Right Kidney: 11.5 x 4.7 x 5.2 cm Pancreas: Obscured by bowel gas Liver: Dilated intrahepatic bilary system. Heterogenous. Gallbladder: Surgically absent Evidence for sonographic Antunez's sign: neg CBD: portions seen appear dilated, unable to see CBD at head of pancreas Right Kidney: lower medial pole anechoic lesion = 1.5 x 1.4 x 1.5 cm IMPRESSION: Dilated intrahepatic biliary system which is new from prior. Attention on subsequent CT imaging for f urther evaluation the abdomen/pelvis.
[2023-05-11 16:28] VITALS: RESP 17
--- NOTE | 2023-05-11 17:05 | CT ---
EXAMINATION TYPE: CT abdomen pelvis w con CT DLP: 965.6 mGycm, Automated exposure control for dose reduction was used. DATE OF EXAM: 05/11/2023 4:45 PM COMPARISON: Ultrasound same day. CLINICAL INDICATION:Female, 67 years old with history of abd pain; jaundice and abdominal pain TECHNIQUE: Axial CT abdomen pelvis w con;Sagittal and coronal reformats were created on a separate w orkstation. Contrast used:80ml mL of Isovue 300 with IV Contrast, (none if empty) Oral contrast used: without Oral Contrast (none if empty) FINDINGS: LOWER CHEST: Unremarkable ABDOMEN LIVER: Unremarkable GALLBLADDER AND BILE DUCTS: Intrahepatic and extra hepatic biliary dilation terminating in the pancre atic head. The gallbladder surgically absent. PANCREAS: Scattered calcification throughout the parenchyma. SPLEEN: Unremarkable. ADRENAL GLANDS: Unremarkable. 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 The ureters are unremarkable. PELVIS BLADDER: Unremarkable REPRODUCTIVE: Unremarkable. ABDOMEN & PELVIS STOMACH AND BOWEL: There is wall thickening of the stomach measuring up to 22 mm. It should be noted the stomach is incompletely distended. Wall thickening of the colon particularly the sigmoid colon me asuring up to 8 mm. The appendix is normal. Scattered colonic diverticula. PERITONEUM/RETROPERITONEUM: No evidence of pneumoperitoneum or free fluid. VASCULATURE: No evidence of aortic aneurysm. MUSCULOSKELETAL: No acute osseous abnormalities LYMPH NODES: Scattered prominent mesenteric lymph nodes are seen throughout the mesentery around the pancreas. There is a fluid collection which could represent pseudocyst versus necrotic lymph node sharon suring 21 mm on series 201 image 29. Additional lymph node series 201 image 39 measuring 9 mm in shor t axis. Other nonenlarged lymph nodes by CT criteria on series 201 image 24, image 26, image 27. SOFT TISSUE/ABDOMINAL WALL: Fat-containing umbilical hernia. IMPRESSION: 1. Intrahepatic and extra hepatic biliary dilation with possible stricture versus mass in the pancre atic head. Number abnormal lymph nodes throughout the mesentery with retroperitoneal necrotic lymph n ode versus pseudocyst measuring 22 mm and other nonenlarged lymph nodes are present. 2. Wall thickening of the gastric lumen which could be due to underdistention versus gastritis versu s less likely mass given the diffuse appearance. Short-term follow-up in one month recommended.. 3. Wall thickening of the sigmoid colon correlate for colitis versus under distention. 4. Colonic diverticulosis.
[2023-05-11 18:17] VITALS: BP 130/84; PULSE 87; TEMP 98.7
[2023-05-11 20:17] LABS: Hepatitis A Antibody IgM Nonreactive; Hepatitis B Surface Antigen Nonreactive; Hepatitis C IgG Antibody Nonreactive
[2023-05-11 21:00] LABS: Hepatitis B Core IgM Nonreactive
== END 2023-05-11 19:01 | disposition other institution (70) ==
LOC: EC 10:49
DX: E80.6 Other disorders of bilirubin metabolism (principal); K86.89 Other specified diseases of pancreas; K57.30 Diverticulosis of large intestine without perforation or abscess without bleeding; J45.909 Unspecified asthma, uncomplicated; I25.10 Atherosclerotic heart disease of native coronary artery without angina pectoris; E11.9 Type 2 diabetes mellitus without complications; F32.A Depression, unspecified; I10 Essential (primary) hypertension; G47.30 Sleep apnea, unspecified; F41.9 Anxiety disorder, unspecified; E78.5 Hyperlipidemia, unspecified; Z79.84 Long term (current) use of oral hypoglycemic drugs; Z79.4 Long term (current) use of insulin; Z79.899 Other long term (current) drug therapy; Z79.82 Long term (current) use of aspirin; Z91.041 Radiographic dye allergy status; Z91.011 Allergy to milk products; Z88.8 Allergy status to other drugs, medicaments and biological substances
CPT/HCPCS: 36415; 80053; 80074; 82150; 82248; 83690; 85025; 85610; 85730; 81001; 76705; 74177; 99285; 96374; 96375 ×2; J1200; J2930; J3490; Q9967

== ENCOUNTER 2023-06-26 01:14 | Emergency (ER) | payer MEDICARE ==
[2023-06-26 01:23] VITALS: RESP 18
[2023-06-26 01:24] LABS: Glucose,Whole Blood 74 mg/dL (70-110)
--- NOTE | 2023-06-26 02:15 | ED ---
General Adult HPI - General Chief complaint: Recheck/Abnormal Lab/Rx Stated complaint: low blood sugar Time Seen by Provider: 06/26/23 01:20 Source: patient Mode of arrival: ambulatory Limitations: no limitations - History of Present Illness Initial comments: 67-year-old female with past medical history significant for diabetes presenting to the ED secondary to hypoglycemia. Patient is a diabetic and typically takes insulin on her normal regimen. However this morning, notes that she was instructed to be n.p.o. for a PET scan at 9 AM later today. States although she was n.p.o. she by mistake took 20 units of insulin glargine although she did not eat. Was alerted by her glucose monitor that she was in the low 40s and thus presents to the ED for further evaluation. Upon arrival to the ED, patient states that she feels well and denies any symptoms. No chest pain, shortness of breath, nausea, vomiting, diarrhea, changes in urinary symptoms. No other complaints at this time. - Related Data Home Medications Medication Instructions Recorded Confirmed Cyclobenzaprine [Flexeril] 10 mg PO BID PRN 12/26/16 05/11/23 DULoxetine HCL [Cymbalta] 60 mg PO HS 12/26/16 05/11/23 Fenofibrate Nanocrystallized 145 mg PO HS 12/26/16 05/11/23 [Tricor] Topiramate [Topamax] 25 mg PO TID 12/26/16 05/11/23 amLODIPine [Norvasc] 2.5 mg PO DAILY 12/26/16 05/11/23 metFORMIN HCL [Glucophage] 1,000 mg PO BID 12/26/16 05/11/23 Aspirin [Adult Low Dose Aspirin EC] 81 mg PO DAILY 01/05/17 05/11/23 Zolpidem [Ambien] 10 mg PO HS 01/05/17 05/11/23 ALPRAZolam [Xanax] 0.25 mg PO BID PRN 12/25/21 05/11/23 Insulin Glargine,Hum.rec.anlog 20 units SQ BID 12/25/21 05/11/23 [Toubrit Solostar] Simvastatin [Zocor] 20 mg PO HS 12/25/21 05/11/23 Biotin 5 mg PO DAILY 05/11/23 05/11/23 Calcium Carbonate/Vitamin D3 1 tab PO DAILY 05/11/23 05/11/23 [Calcium 600 mg-D3 20 mcg (800 unit)] Previous Rx's Medication Instructions Recorded hydroCHLOROthiazide [Hydrodiuril] 50 mg PO DAILY #30 tab 12/17/21 Allergies Allergy/AdvReac Type Severity Reaction Status Date / Time Iodinated Contrast Media Allergy Rash/Hives Verified 06/26/23 01:19 [Iodinated Contrast- Oral and IV Dye] iothalamate meglumine Allergy Rash/Hives Verified 06/26/23 01:19 [From [place]] lactose AdvReac Diarrhea Verified 06/26/23 01:19 Review of Systems ROS Statement: Those systems with pertinent positive or pertinent negative responses have been documented in the HPI. ROS Other: All systems not noted in ROS Statement are negative. Past Medical History Past Medical History: Asthma, Coronary Artery Disease (CAD), Diabetes Mellitus, GERD/Reflux, Hyperlipidemia, Hypertension, Sleep Apnea/CPAP/BIPAP Additional Past Medical History / Comment(s): gallstones, recent pancreatitis, migraines, mild coronary artery disease, mild asthma, not using cpap, hx anemia, History of Any Multi-Drug Resistant Organisms: None Reported Past Surgical History: Breast Surgery, Heart Catheterization, Orthopedic Surgery, Tonsillectomy Additional Past Surgical History / Comment(s): left breast lumpectomy("precancer"), fatty pocket on left side of back, abdominoplasty, breast reduction, arthroscopy shoulder surgery(?rt), Past Anesthesia/Blood Transfusion Reactions: No Reported Reaction Past Psychological History: Anxiety, Depression Smoking Status: Never smoker Past Alcohol Use History: None Reported Past Drug Use History: None Reported - Past Family History Mother Family Medical History: No Reported History Additional Family Medical History / Comment(s): . Father Additional Family Medical History / Comment(s): dementia runs on dads side of family General Exam Limitations: no limitations General appearance: alert Eye exam: Present: normal appearance ENT exam: Present: mucous membranes moist Neck exam: Present: normal inspection Respiratory exam: Present: normal lung sounds bilaterally Cardiovascular Exam: Present: regular rate GI/Abdominal exam: Present: soft Extremities exam: Present: normal inspection Neurological exam: Present: alert, oriented X3 Skin exam: Present: warm, dry Course Vital Signs 06/26/23 01:15 Temperature 98.0 F Pulse Rate 122 H Respiratory 18 Rate Blood Pressure 137/83 O2 Sat by Pulse 99 Oximetry - Reevaluation(s) Reevaluation #1: 06/26/23 02:14 patient just checked her CGM. Blood sugar 132. Medical Decision Making - Medical Decision Making Was pt. sent in by a medical professional or institution (NORMA Velásquez, T[employer] SERVICE ATTENDANT, urgent care, hospital, or care home...) When possible be specific @ -No Did you speak to anyone other than the patient for history (EMS, parent, family, police, friend...)? What history was obtained from this source @ -No Did you review nursing and triage notes (agree or disagree)? Why? @ -I reviewed and agree with nursing and triage notes Were old charts reviewed (outside hosp., previous admission, EMS record, old EKG, old radiological studies, urgent care reports/EKG's, care home records)? Report findings @ -No old charts were reviewed Differential Diagnosis (chest pain, altered mental status, abdominal pain women, abdominal pain men, vaginal bleeding, weakness, fever, dyspnea, syncope, headache, dizziness, GI bleed, back pain, seizure, CVA, palpatations, mental health, musculoskeletal)? @ -Not applicable EKG interpreted by me (3pts min.). @ -As above X-rays interpreted by me (1pt min.). @ -None done CT interpreted by me (1pt min.). @ -None done U/S interpreted by me (1pt. min.). @ -None done What testing was considered but not performed or refused? (CT, X-rays, U/S, labs)? Why? @ -None What meds were considered but not given or refused? Why? @ -None Did you discuss the management of the patient with other professionals (professionals i.e. NORMA Velásquez, T[employer] VEH[employer] SERVICE ATTENDANT, lab, RT, psych nurse, social worker health services, botany teacher, teacher, chief medical officer, medical case worker)? Give summary @ -No Was smoking cessation discussed for >3mins.? @ -No Was critical care preformed (if so, how long)? @ -No Were there social determinants of health that impacted care today? How? (Homelessness, low income, unemployed, alcoholism, drug addiction, transportation, low edu. Level, literacy, decrease access to med. care, fci, rehab)? @ -No Was there de-escalation of care discussed even if they declined (Discuss DNR or withdrawal of care, Hospice)? DNR status @ -No What co-morbidities impacted this encounter? (DM, HTN, Smoking, COPD, CAD, Cancer, CVA, ARF, Chemo, Hep., AIDS, mental health diagnosis, sleep apnea, morbid obesity)? @ -Diabetes Was patient admitted / discharged? Hospital course, mention meds given and route, prescriptions, significant lab abnormalities, going to OR and other pertinent info. @ -Discharge Patient presenting to the ED with a chief complaint of hypoglycemia. Patient notes a history of pancreatic cancer and is due to get a PET scan at 9 AM this morning and was instructed nothing to eat or drink at midnight. Patient reports out of routine she took 20 units of insulin glargine at 12 a.m. although she has not been eating or drinking. States that her glucose monitor alerted her that she was in the low 40s prompting presentation to the ED for further evaluation. In the ED, she was started on D10 half-normal saline. Her sugar was found to be in the 200s and this was discontinued. Patient was reevaluated approximately 30 minutes after this. She has had no significant drop in her blood sugar. Discharged home in stable condition and advised to present for PET scan as scheduled. Discussed return precautions with patient who verbalized agreement. Undiagnosed new problem with uncertain prognosis? @ -No Drug Therapy requiring intensive monitoring for toxicity (Heparin, Nitro, Insulin, Cardizem)? @ -No Were any procedures done? @ -No Diagnosis/symptom? @ -Hypoglycemia Acute, or Chronic, or Acute on Chronic? @ -Acute Uncomplicated (without systemic symptoms) or Complicated (systemic symptoms)? @ -Uncomplicated Side effects of treatment? @ -No Exacerbation, Progression, or Severe Exacerbation? @ -No Poses a threat to life or bodily function? How? (Chest pain, [place], [place], pneumonia, PE, COPD, DKA, ARF, appy, cholecystitis, CVA, Diverticulitis, Homicidal, Suicidal, threat to staff... and all critical care pts) @ -No - Lab Data Lab Results 06/26/23 Range/Units 01:22 POC Glucose (mg/dL) 74 (70-110) mg/dL POC Glu [employer] Mara Manrique Disposition Clinical Impression: Hypoglycemia Disposition: HOME SELF-CARE Condition: Good Additional Instructions: Please return to the Emergency Department if symptoms worsen or any other concerns. If PET scan needs to be rescheduled and you are instructed to be n.p.o. again please do not give yourself insulin if you have not ate. Is patient prescribed a controlled substance at d/c from ED?: No Referrals: Amy Card MD [Primary Care Provider] - 1-2 days Time of Disposition: 03:59
[2023-06-26] MEDS: DEXTROSE 10% IN WATER 1,000 ML with SODIUM CHLORIDE 4MEQ/ML VIAL 77 MEQ IV ONE (02:22)
[2023-06-26 04:17] LABS: Glucose,Whole Blood 170 mg/dL (70-110)
[2023-06-26 05:00] VITALS: BP 130/80; PULSE 102; TEMP 98.2
== END 2023-06-26 04:34 | disposition home or self-care (01) ==
LOC: EC 01:14
DX: E11.649 Type 2 diabetes mellitus with hypoglycemia without coma (principal); I10 Essential (primary) hypertension; I25.10 Atherosclerotic heart disease of native coronary artery without angina pectoris; J45.909 Unspecified asthma, uncomplicated; E78.5 Hyperlipidemia, unspecified; F41.9 Anxiety disorder, unspecified; F32.A Depression, unspecified; Z79.82 Long term (current) use of aspirin; Z79.4 Long term (current) use of insulin; Z79.84 Long term (current) use of oral hypoglycemic drugs; Z79.899 Other long term (current) drug therapy; Z91.011 Allergy to milk products; Z91.041 Radiographic dye allergy status; Z88.8 Allergy status to other drugs, medicaments and biological substances
CPT/HCPCS: 36415; 96360; 96361; 99284